=== PATIENT | male | born 1960 | race Caucasian/White ===

== ENCOUNTER 2017-09-15 18:14 | Inpatient (IN) ==
--- NOTE | 2017-09-15 18:41 | Emergency Department Note ---
Fall HPI - General Chief Complaint: Fall Stated Complaint: Falls, swollen lower legs Time Seen by Provider: 09/15/17 18:34 Source: patient Mode of arrival: wheelchair - History of Present Illness HPI Narrative: This patient has a history of liver cirrhosis and has been falling recently. He complains of generalized weakness but not much shortness of breath. He does have ascites but has never had paracentesis. No abdominal pain. Does not complain of any injury from falling. - Related Data Home Medications Medication Instructions Recorded Confirmed Furosemide [Lasix] 0 mg PO DAILY 09/15/17 09/15/17 Allergies Allergy/AdvReac Type Severity Reaction Status Date / Time Penicillins [PENICILLINS] Allergy Severe ANGIOEDEMA Verified 09/15/17 18:23 Review of Systems Constitutional: Denies: fever, chills Eyes: Denies: eye pain ENT ED: Denies: ear pain Cardiovascular: Denies: chest pain Respiratory: Denies: cough, shortness of breath Gastrointestinal: Denies: abdominal pain, nausea Genitourinary: Denies: dysuria Musculoskeletal: Denies: back pain Integumentary: Denies: rash Neurological: Denies: headache Fall PMH - Past Medical History Medical history: Reports: liver disease (Due to alcohol) - Social History smoking status: Smokeless tobacco Alcohol use: Reports: Heavy, Recent Physical Exam Limitations: no limitations General appearance: alert Head: atraumatic, normocephalic Eye: Present: scleral icterus ENT: normal exam Neck: Present: normal inspection Chest: Present: normal inspection Respiratory: Present: normal lung sounds bilaterally Cardiovascular: Present: regular rate, normal rhythm, normal heart sounds Abdominal: Present: soft, distention. Absent: tenderness, guarding, rebound, rigidity Extremities: Present: pedal edema, pretibial edema Neurological: Present: alert Psychiatric: Present: normal affect, normal mood Skin: Present: warm, dry, other (Patient is jaundiced and has spider angiomata on his chest) Course Vital Signs Pulse Rate 92 H 09/15/17 18:15 Respiratory Rate 32 H 09/15/17 18:15 Blood Pressure 123/72 09/15/17 18:15 Pulse Oximetry (%) 99 09/15/17 18:15 Temperature 98.3 F 09/15/17 19:25 Pulse Rate 84 09/15/17 19:16 Respiratory Rate 14 09/15/17 19:16 Blood Pressure 102/63 09/15/17 19:16 Pulse Oximetry (%) 96 09/15/17 19:16 Fall - MDM Narrative Medical decision making narrative: 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 Ammonia is very high and we started lactulose. He may have left lower lobe pneumonia and we started Levaquin. Also has very high lactic acid but I do not see obvious signs of infection to explain it. According the family he has been sleeping most of the time recently so he may be very dehydrated. Alcohol level was only 0.04 so he has not been drinking much recently. He will be admitted to the ICU by Dr. Eugene. - Lab Data Lab results reviewed: Yes I reviewed the patient's lab results. Result diagrams: 09/15/17 18:38 09/15/17 18:38 Lab Results 09/15/17 09/15/17 09/15/17 Range/Units 18:38 18:38 18:38 WBC 7.9 (4.5-11.0) K/mcL RBC 2.73 L (4.50-5.90) M/mcL Hgb 10.8 L (13.5-16.5) g/dL Hct 31.1 L (41.0-55.0) % MCV 113.9 H (80.0-100.0) fL MCH 39.5 H (26.0-34.0) pg MCHC 34.6 (31.0-36.0) g/dL RDW 16.4 H (11.5-14.5) % Plt Count 129 L (140-440) K/mcL MPV 7.9 (7.4-10.4) fL Gran % 54.4 (38.0-78.0) % Lymph % (Auto) 22.5 (15.5-49.0) % [place] % (Auto) 18.2 H (1.0-12.0) % Eos % (Auto) 4.7 (0.0-7.0) % Baso % (Auto) 0.2 (0.0-2.0) % Gran # 4.3 (1.8-8.0) K/mcL Lymph # (Auto) 1.8 (1.5-4.8) K/mcL [place] # (Auto) 1.4 H (0.1-0.9) K/mcL Eos # (Auto) 0.4 (0.0-0.7) K/mcL Baso # (Auto) 0 (0.0-0.3) K/mcL PT 23.0 H (11.9-14.5) sec INR 2.0 H (0.9-1.1) VBG Lactic Acid (0.5-2.2) mmol/L Sodium 136 (133-145) mmol/L Potassium 2.6 L* (3.3-5.1) mmol/L Chloride 90 L (96-108) mmol/L Carbon Dioxide 21 L (22-30) mmol/L Anion Gap 25.0 H (8-16) BUN 8 (6-20) mg/dl Creatinine 1.0 (0.7-1.2) mg/dl GFR Calculation 83 Glucose 104 (70-105) mg/dL Calcium 8.0 L (8.6-10.4) mg/dl Total Bilirubin 9.6 H (0.0-1.0) mg/dL AST 67 H (0-37) U/l ALT 21 (0-40) U/l Alkaline Phosphatase 115 (39-117) U/L Ammonia (16-60) umol/L Total Protein 8.1 (5.9-8.4) gm/dL Albumin 3.0 L (3.2-5.2) gm/dL Globulin 5.1 H (2.2-3.7) gm/dL Albumin/Globulin Ratio 0.6 L (1.0-2.3) Ethyl Alcohol (<0.010) gm/dl 09/15/17 09/15/17 09/15/17 Range/Units 18:38 18:38 18:38 WBC (4.5-11.0) K/mcL RBC (4.50-5.90) M/mcL Hgb (13.5-16.5) g/dL Hct (41.0-55.0) % MCV (80.0-100.0) fL MCH (26.0-34.0) pg MCHC (31.0-36.0) g/dL RDW (11.5-14.5) % Plt Count (140-440) K/mcL MPV (7.4-10.4) fL Gran % (38.0-78.0) % Lymph % (Auto) (15.5-49.0) % [place] % (Auto) (1.0-12.0) % Eos % (Auto) (0.0-7.0) % Baso % (Auto) (0.0-2.0) % Gran # (1.8-8.0) K/mcL Lymph # (Auto) (1.5-4.8) K/mcL [place] # (Auto) (0.1-0.9) K/mcL Eos # (Auto) (0.0-0.7) K/mcL Baso # (Auto) (0.0-0.3) K/mcL PT (11.9-14.5) sec INR (0.9-1.1) VBG Lactic Acid 9.8 H* (0.5-2.2) mmol/L Sodium (133-145) mmol/L Potassium (3.3-5.1) mmol/L Chloride (96-108) mmol/L Carbon Dioxide (22-30) mmol/L Anion Gap (8-16) BUN (6-20) mg/dl Creatinine (0.7-1.2) mg/dl GFR Calculation Glucose (70-105) mg/dL Calcium (8.6-10.4) mg/dl Total Bilirubin (0.0-1.0) mg/dL AST (0-37) U/l ALT (0-40) U/l Alkaline Phosphatase (39-117) U/L Ammonia 232 H (16-60) umol/L Total Protein (5.9-8.4) gm/dL Albumin (3.2-5.2) gm/dL Globulin (2.2-3.7) gm/dL Albumin/Globulin Ratio (1.0-2.3) Ethyl Alcohol 0.046 H (<0.010) gm/dl - Radiology Data Radiology results reviewed: Yes I reviewed the patient's radiology results. Disposition Pt seen by [employer]/PA only: No Clinical Impression: Cirrhosis of liver Disposition: Xfer As Inpt ([facility]) Condition: Fair Referrals: Erwin Moore MD [Primary Care Provider] - Time of Disposition: 20:09
--- NOTE | 2017-09-15 19:15 | XRay Report ---
HISTORY: Reason for Exam:ascites fell and swollen lower legs FINDINGS: There is moderate consolidation posteriorly medially in the left lower lobe. This is a new finding since 05/03/14. There may be a small subpulmonic pleural effusion on the left. The mid and upper left thorax are clear. The right lung is clear and well expanded. The heart is mildly enlarged and has increased in size since 2013. There is no pulmonary vascular congestion. Mild compression fractures seen involving the superior endplate of T12. This is old. IMPRESSION: Pneumonia or atelectasis in the left lower lobe. Mild cardiomegaly Interpreted and Authenticated by: Esteban Soto 09/15/17
[2017-09-15] MEDS ORDERED: LEVOFLOXACIN 750 MG/150 ML BAG IV ONE (19:23)
[2017-09-15] MEDS ORDERED: LACTULOSE 20 GM/30 ML ORAL.SOL PO ONE (19:25)
[2017-09-15 19:40] LABS: ALT/SGPT 21 U/l (0-40); Albumin/Globulin Ratio 0.6 (1.0-2.3); Alkaline Phosphatase 115 U/L (39-117); Blood Urea Nitrogen 8 mg/dl (6-20)
[2017-09-15] MEDS ORDERED: LIDOCAINE 2% URO-JET 5 ML JEL.PF.APP UR ONE (19:48)
[2017-09-15 19:50] LABS: Basophils # (Auto) 0 K/mcL (0.0-0.3); Basophils % (Auto) 0.2 % (0.0-2.0); Eosinophils # (Auto) 0.4 K/mcL (0.0-0.7); Eosinophils % (Auto) 4.7 % (0.0-7.0); Granulocytes % (Auto) 54.4 % (38.0-78.0); Lymphocytes # (Auto) 1.8 K/mcL (1.5-4.8); Lymphocytes % (Auto) 22.5 % (15.5-49.0); Mean Cell Volume 113.9 fL (80.0-100.0); Mean Corpuscular HGB Conc 34.6 g/dL (31.0-36.0); Mean Corpuscular Hemoglobin 39.5 pg (26.0-34.0); Monocytes # (Auto) 1.4 K/mcL (0.1-0.9); Monocytes % (Auto) 18.2 % (1.0-12.0); Platelet Count 129 K/mcL (140-440); RBC 2.73 M/mcL (4.50-5.90); Red Cell Distribution Width 16.4 % (11.5-14.5)
[2017-09-15] MEDS ORDERED: LIDOCAINE JEL 2% 1 TUBE 30GM TOPICAL ONE (19:58)
--- NOTE | 2017-09-15 20:48 | Internal Med History&Physical ---
Medical - H&P: HPI Patient information: Note initiated : 09/15/17 at 8:42 pm Patient: Esteban Almeida 56 y/o M admitted on for Falls, swollen lower legs. Chief Complaint: [] History of present illness: Mr. Almeida is a 56 year old man who was recently diagnosed with liver cirrhosis, is brought in by his family with complaint of increased falls, lower extremity edema, jaundice, shortness of breath. Unfortunately, the family had already gone home by the time the patient arrived on the floor. Patient appears to be an unreliable historian. He reports that his legs have been swelling for the last 3 weeks, and that he fell down today and could not get up because his legs are so heavy. He really cannot recall any other symptoms. He denies fever chills, headaches or dizziness, new eye or ear symptoms, sore throat or cough, chest pain or palpitations, shortness of breath or wheezing, abdominal pain, nausea or vomiting, diarrhea. He does report mild constipation. He does report some difficulty urinating. Records obtained from [facility] show that he was admitted there in May 2017 with jaundice secondary to alcoholic hepatitis, liver cirrhosis secondary to alcohol, cerebellar ataxia, hypokalemia, L3 compression fracture, chronic anemia and thrombocytopenia, alcohol abuse. I spoke with Dr. Archuleta this evening, as he had seen the patient at [facility]. He had hoped the patient had quit drinking alcohol, but apparently the patient did not once he got out of rehab. ER evaluation shows weighted ammonia level, elevated lactic acid level, hypokalemia, markedly elevated bilirubin of 9.6, elevated pro time, and chest x- ray suggests left lower lobe pneumonia with possible effusion. 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 Patient admits that he still drinks about 4-6 beers per day. He does not use drugs. He currently lives with his father. He has other siblings and family that live here in town. He says one brother of an PR. Use is reported, active drinker Family history: His brother of an PR. He reports his father is alive and well. Medical - H&P: Meds Home Medications Medication Instructions Recorded Confirmed Type Furosemide [Lasix] 0 mg PO DAILY 09/15/17 09/15/17 History Allergies Allergy/AdvReac Type Severity Reaction Status Date / Time Penicillins [PENICILLINS] Allergy Severe ANGIOEDEMA Verified 09/15/17 18:23 Medical - H&P: Exam - Constitutional Vitals: Temp Pulse Resp BP Pulse Ox 98.3 F 95 H 22 125/69 93 09/15/17 19:25 09/15/17 20:32 09/15/17 20:32 09/15/17 20:32 09/15/17 20:32 On exam, he is a slender white man who appears jaundiced. He is quite fidgety in bed, but is otherwise in no acute distress. He seems quite forgetful. Head: Normocephalic, atraumatic, although he does appear to have temporal wasting. Eyes: Pupils round and reactive, EOMI, mild jaundice. Left pupil is not reactive, and he apparently has no vision in that eye. Ears: TMs and canals are clear. Pharynx: Is clear. Teeth are in fair condition. Neck: Supple, without obvious JVD, lymphadenopathy, thyromegaly, bruits. Cardiac exam: Shows regular rate and rhythm with normal S1 and S2 without murmurs rubs or gallops. Lungs: Decreased breath sounds are noted at the left base, otherwise lungs are clear, without rales, rhonchi, wheezes. Abdomen: Is slightly distended, but otherwise soft and nontender. There are no obvious masses. Does have telangiectasias noted over the abdomen and on his chest. All sounds are active. Extremities: Show about 4+ edema all the way up to the level of his belly. There is no obvious cyanosis or clubbing. Neurologic exam: Patient is awake and alert, but seems quite forgetful and lacks insight into his illness. Mood is calm. However he does fidget quite a bit in bed, which he blames on sliding down in bed too much. Cerebellar exam does not show any obvious asterixis. Motor exam is grossly nonfocal. Medical - H&P: Reslt - Labs CBC & Chem 7: 09/15/17 18:38 09/15/17 18:38 Labs: Short CBC 09/15/17 Range/Units 18:38 WBC 7.9 (4.5-11.0) K/mcL Hgb 10.8 L (13.5-16.5) g/dL Hct 31.1 L (41.0-55.0) % Plt Count 129 L (140-440) K/mcL BMP 09/15/17 18:38 Sodium 136 Potassium 2.6 L* Chloride 90 L Carbon Dioxide 21 L BUN 8 Creatinine 1.0 Glucose 104 Calcium 8.0 L Liver Function 09/15/17 Range/Units 18:38 Total Bilirubin 9.6 H (0.0-1.0) mg/dL AST 67 H (0-37) U/l ALT 21 (0-40) U/l Alkaline Phosphatase 115 (39-117) U/L Albumin 3.0 L (3.2-5.2) gm/dL September 15: Pro time is 23 with INR of 2.0 next Lactic acid is elevated at 9.8 Urinalysis: Alcohol level is elevated at 0.046 Chest x-ray: Moderate left lower lobe consolidation. Possible left-sided pleural effusion. Mild compression fractures of the endplate of T12, old. Mild cardiomegaly. Head CT done at [facility] in May 2017 showed no acute process. Abdominal and pelvic CT showed cirrhosis of the liver with portal venous hypertension, pancreatitis, distended gallbladder, L1 and L3 superior endplate compression changes and L3 compression fracture, evidence of right renal atrophy Ultrasound showed distended gallbladder with sludge MRCP showed significantly distended gallbladder with some sludge of the neck but no biliary duct dilation. Labs on admission in May showed platelet count of 88,000, sodium 132, potassium 2.4, total bilirubin of 10 AST 91, alcohol blood level of less than 0.01. Medical - H&P: A/P (1) Left lower lobe pneumonia Current visit: Yes Status: Acute (2) Lactic acidosis Current visit: Yes Status: Acute (3) Cirrhosis of liver Current visit: Yes Status: Chronic (4) Hypokalemia Current visit: No Status: Acute - Narrative A/P Narrative: #1. Infectious disease. Patient presents with apparent left lower lobe pneumonia, lactic acidosis, possible SBP, possible early sepsis. -Gentle IV fluids, regarding overall volume status. -Monitor on telemetry. -Oxygen, bronchodilators, pulmonary toilet. -Blood, urine, sputum cultures. -Order paracentesis for Gram stain, culture, other studies. -May treat the patient with Rocephin to cover both his pneumonia and possible SBP, although GI recommends cefotaxime and this is I am not sure this is on our formulary) 2. GI. Patient presents with history of cirrhosis, relatively recent. Clinically has severe liver dysfunction. Sent for recent GI records [facility]. -Hepatitis, with a MADDRY discriminant function of 60. This was reviewed with Dr. Archuleta of , and he suggests we treat him with prednisolone 40 mg daily for 30 days, and then do a 16 day taper by 10 mg per day every 4 days. -Correct his relatively severe hypokalemia, and then resume Lasix and I would think Aldactone or amiloride. Looks like his discharge medications from [facility] included prednisone, Lasix, potassium, oxycodone, atenolol, amlodipine , allopurinol -Resume diuretics at some point. We will need to correct his potassium first. -Elevated ammonia. Titrate lactulose to 3 bowel movements per day. 3. History of alcohol abuse -[facility] protocol -#4. CODE STATUS: Full code. Patient believes his father would act as his POA. 5. DVT prophylaxis: Patient is auto anticoagulated. 6. Neurologic. Failure to thrive. History of cerebellar degeneration. Patient apparently is no longer ambulatory. -PT and OT evaluations. It appears patient is struggling at home, and may need placement. #7. Poor nutritional status. Dietary consult. 8. Cardiac. 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 Consider echocardiogram. Approximately 75 minutes was spent this evening, reviewing the patient's case with the ER MD, reviewing his test results, interviewing and examining the patient, and then spending approximately 20 minutes on the phone with Dr. Archuleta of , reviewing the patient's case and plan of care.
[2017-09-15 20:50] LABS: Appearance,Urine CLEAR; Bacteria,Urine FEW /hpf (0); Color,Urine AMBER; Glucose,Urine (UA) NEGATIVE (NEG); Ictotest,Urine POS (NEG); Leukocyte Esterase,Urine NEG /uL (NEG); Mucus,Urine MANY /hpf (0); Nitrate,Urine NEG (NEG); Protein,Urine NEG (NEG); Specific Gravity,Urine 1.015 (1.000-1.035); Urine Blood NEG mg/dL (<0.03); Urine Hyaline Cast 127 /lpf (0-2); Urine RBC 0 /hpf (0-1); Urine Squamous Epithelial Cell < 1 /hpf (0-4); Urine Transitional Epi Cells < 1 /hpf (0-2); Urine WBC 1 /hpf (0-4)
[2017-09-15] MEDS ORDERED: DOCUSATE SODIUM 100 MG CAPSULE PO PRN (21:20)
[2017-09-15] MEDS ORDERED: NALOXONE HCL 0.4 MG/ML VIAL IV PRN (21:20)
[2017-09-15] MEDS ORDERED: ACETAMINOPHEN 325 MG TABLET PO PRN (21:20)
[2017-09-15] MEDS ORDERED: ONDANSETRON 4 MG/2 ML VIAL IV PRN (21:20)
[2017-09-15] MEDS ORDERED: CIPROFLOXACIN 400 MG/200 ML BAG IV SCH (21:20)
[2017-09-15] MEDS ORDERED: LACTULOSE 20 GM/30 ML ORAL.SOL PO SCH (21:20)
[2017-09-15] MEDS: POTASSIUM CHLORIDE 40 MEQ in DEXTROSE 5%-1/2NS 1,000 ML IV SCH (21:53)
[2017-09-15] MEDS ORDERED: cefTRIAXone 2 GM VIAL IV SCH (22:30)
[2017-09-16] MEDS ORDERED: cefTRIAXone 2 GM VIAL ONE (00:18)
[2017-09-16] MEDS ORDERED: predniSONE 20 MG TABLET ONE (00:18)
[2017-09-16] MEDS: prednisoLONE 15 MG/5 ML ORAL SOL PO SCH ×2 (00:36→09:27)
[2017-09-16] MEDS: 0.9 % SODIUM CHLORIDE 10 ML SYRINGE IV SCH ×7 (00:36→22:15)
[2017-09-16] MEDS ORDERED: LORazepam 2 MG/ML VIAL ONE (00:41)
[2017-09-16 06:20] LABS: ALT/SGPT 16 U/l (0-40); Albumin 2.4 gm/dL (3.2-5.2); Albumin/Globulin Ratio 0.6 (1.0-2.3); Alkaline Phosphatase 76 U/L (39-117); Bilirubin,Direct 4.2 mg/dL (0.0-0.3); Blood Urea Nitrogen 7 mg/dl (6-20); Gamma Glutamyl Transpeptidase 55 U/L (8-61); Uric Acid 2.6 mg/dL (2.5-8.0)
[2017-09-16 06:50] LABS: Basophils # (Auto) 0 K/mcL (0.0-0.3); Basophils % (Auto) 0.3 % (0.0-2.0); Eosinophils # (Auto) 0.2 K/mcL (0.0-0.7); Granulocytes % (Auto) 52.5 % (38.0-78.0); Lymphocytes # (Auto) 1.1 K/mcL (1.5-4.8); Lymphocytes % (Auto) 22.5 % (15.5-49.0); Mean Cell Volume 112.4 fL (80.0-100.0); Mean Corpuscular HGB Conc 34.2 g/dL (31.0-36.0); Mean Corpuscular Hemoglobin 38.5 pg (26.0-34.0); Monocytes # (Auto) 1.1 K/mcL (0.1-0.9); Monocytes % (Auto) 20.7 % (1.0-12.0); Platelet Count 84 K/mcL (140-440); RBC 2.28 M/mcL (4.50-5.90); Red Cell Distribution Width 17.1 % (11.5-14.5)
[2017-09-16] MEDS ORDERED: POTASSIUM CHLORIDE 80 MEQ in DEXTROSE 5% IN WATER 1,000 ML IV ONE (08:00)
[2017-09-16] MEDS ORDERED: ATENOLOL 50 MG TABLET PO SCH (09:00)
[2017-09-16] MEDS ORDERED: MAGNESIUM SULFATE 32.48 MEQ in DEXTROSE 5% IN WATER 100 ML IV ONE (09:00)
[2017-09-16] MEDS: ALBUTEROL SULFATE 2.5 MG/3 ML NEBULIZER NEB SCH ×3 (09:13→21:18)
[2017-09-16] MEDS: LACTULOSE 20 GM/30 ML ORAL.SOL PO SCH ×4 (09:25→21:00)
[2017-09-16] MEDS: POTASSIUM CHLORIDE 20 MEQ TABLET PO SCH ×2 (09:26→17:00)
[2017-09-16] MEDS: FOLIC ACID 1 MG TABLET PO SCH (09:26)
[2017-09-16] MEDS: MULTIVIT,THER IRON,CA,FA & MIN 1 TABLET PO SCH (09:26)
[2017-09-16] MEDS: THIAMINE 100 MG TABLET PO SCH (09:26)
[2017-09-16] MEDS: ATENOLOL 50 MG TABLET PO SCH ×2 (09:27→21:01)
[2017-09-16] MEDS: POTASSIUM CHLORIDE 40 MEQ in DEXTROSE 5%-1/2NS 1,000 ML IV SCH (09:30)
[2017-09-16] MEDS ORDERED: ALBUMIN HUMAN 50 GM/200 ML BAG IV ONE (11:45)
--- NOTE | 2017-09-16 12:05 | Internal Med Progress Note ---
Medical - PN: Subj Patient information: Note initiated : 09/16/17 at 12:04 pm Service Date, if different from initiated Date: [] Patient: Esteban Almeida 56 y/o M admitted on 09/15/17 for Falls, Swollen Lower Legs/PNA, Cirrhosis of Liver. Chief Complaint: [] Interval history: September 15, 2017: History of present illness: Mr. Almeida is a 56 year old man who was recently diagnosed with liver cirrhosis, is brought in by his family with complaint of increased falls, lower extremity edema, jaundice, shortness of breath. Unfortunately, the family had already gone home by the time the patient arrived on the floor. Patient appears to be an unreliable historian. He reports that his legs have been swelling for the last 3 weeks, and that he fell down today and could not get up because his legs are so heavy. He really cannot recall any other symptoms. He denies fever chills, headaches or dizziness, new eye or ear symptoms, sore throat or cough, chest pain or palpitations, shortness of breath or wheezing, abdominal pain, nausea or vomiting, diarrhea. He does report mild constipation. He does report some difficulty urinating. Records obtained from [facility] show that he was admitted there in May 2017 with jaundice secondary to alcoholic hepatitis, liver cirrhosis secondary to alcohol, cerebellar ataxia, hypokalemia, L3 compression fracture, chronic anemia and thrombocytopenia, alcohol abuse. I spoke with Dr. Archuleta this evening, as he had seen the patient at [facility]. He had hoped the patient had quit drinking alcohol, but apparently the patient did not once he got out of rehab. ER evaluation shows weighted ammonia level, elevated lactic acid level, hypokalemia, markedly elevated bilirubin of 9.6, elevated pro time, and chest x- ray suggests left lower lobe pneumonia with possible effusion. September 16: -Today, the patient continues to deny that he is having problems. He is wondering when he can go home. Last evening, he was unable to empty his bladder , and had a greater than 700 mL postvoid residual, so Graves catheter was placed. He admits he has been having trouble emptying his bladder at home. -He was seen by physical therapy today. He is still too weak to really assist much with transfers, so they are working on that. -He denies significant pain, fever or chills, chest pain or shortness of breath or cough, abdominal pain, nausea or vomiting or diarrhea. His history appears quite unreliable. -Radiology was able to remove approximately 3 L of fluid via paracentesis today. -His father was in the room when I stop by this evening, and I explained that he was having further decompensation of his liver function, and due to ongoing alcohol use. The father, who lives with the patient, says he did not realize the patient was still drinking. Nursing staff tells me that the patient's parents feel that because of worsening weakness they are concerned that they will not be able to handle him at home any longer. - Constitutional Vitals: Vital Signs Temp Pulse Resp BP Pulse Ox 99.8 F H 90 18 121/63 96 09/16/17 10:30 09/16/17 10:30 09/16/17 10:30 09/16/17 10:30 09/16/17 10:30 Period Temp Pulse Resp BP Sys/López Pulse Ox Last 24 Hr 97.9 F-100.3 F 84-95 9-32 92-125/55-87 93-100 Intake and Output 09/15/17 09/16/17 09/16/17 21:59 05:59 13:59 Intake Total 150 / 150 240 / 240 1260 / 1260 Output Total 150 / 150 1100 / 1100 Balance 150 / 150 90 / 90 160 / 160 Weight 250 lb 1.6 oz Intake & Output: Intake & Output 09/15/17 09/16/17 09/16/17 21:59 05:59 13:59 Intake Total 150 / 150 240 / 240 1260 / 1260 Output Total 150 / 150 1100 / 1100 Balance 150 / 150 90 / 90 160 / 160 Weight 250 lb 1.6 oz Intake: IV 150 / 150 1020 / 1020 Potassium Chloride 40 Meq In 1020 / 1020 Dextrose 5%-1/2Ns IV Solution 1 ,000 ml @ 100 mls/hr IV . [id number] [facility] Rx#:[id number] Oral 240 / 240 240 / 240 Output: Urine Catheter Amount 500 / 500 Void Amount 150 / 150 600 / 600 Uretheral (Graves) 600 / 600 On exam, he is in no acute distress. He is sitting straight up in bed. He is awake and alert, but seems quite forgetful. Neck is supple without obvious JVD. Cardiac exam shows regular rate and rhythm. Lungs have decreased breath sounds at the bases, with a few crackles at the left base, but otherwise are without rhonchi or wheezes. Abdomen is soft, with active bowel sounds. Extremities continue to show about 4+ pitting edema up to the abdomen. Medical - PN: Obj Da - Labs CBC & Chem 7: 09/16/17 04:22 09/16/17 04:22 Labs: Abnormal Lab Results 09/16/17 09/16/17 09/16/17 04:22 04:22 04:22 RBC 2.28 L Hgb 8.8 L Hct 25.6 L MCV 112.4 H MCH 38.5 H RDW 17.1 H Plt Count 84 L [place] % (Auto) 20.7 H Lymph # (Auto) 1.1 L [place] # (Auto) 1.1 H PT INR VBG Lactic Acid 3.4 H Potassium Chloride Carbon Dioxide Anion Gap Glucose Calcium Magnesium Total Bilirubin Direct Bilirubin AST Ammonia 105 H Lactate Dehydrogenase Albumin Globulin Albumin/Globulin Ratio Urine Bilirubin Urine Ictotest Urine Urobilinogen Urine Bacteria Hyaline Casts Urine Mucus Ethyl Alcohol 09/16/17 09/15/17 09/15/17 04:22 20:10 18:38 RBC Hgb Hct MCV MCH RDW Plt Count [place] % (Auto) Lymph # (Auto) [place] # (Auto) PT INR VBG Lactic Acid Potassium 2.4 L* Chloride 95 L Carbon Dioxide Anion Gap Glucose 117 H Calcium 7.2 L Magnesium 1.0 L Total Bilirubin 7.8 H Direct Bilirubin 4.2 H AST 51 H Ammonia Lactate Dehydrogenase 269 H Albumin 2.4 L Globulin 3.9 H Albumin/Globulin Ratio 0.6 L Urine Bilirubin 4.0 A Urine Ictotest Pos A Urine Urobilinogen 4.0 A Urine Bacteria Few A Hyaline Casts 127 H Urine Mucus Many A Ethyl Alcohol 0.046 H 09/15/17 09/15/17 09/15/17 18:38 18:38 18:38 RBC Hgb Hct MCV MCH RDW Plt Count [place] % (Auto) Lymph # (Auto) [place] # (Auto) PT INR VBG Lactic Acid 9.8 H* Potassium 2.6 L* Chloride 90 L Carbon Dioxide 21 L Anion Gap 25.0 H Glucose Calcium 8.0 L Magnesium Total Bilirubin 9.6 H Direct Bilirubin AST 67 H Ammonia 232 H Lactate Dehydrogenase Albumin 3.0 L Globulin 5.1 H Albumin/Globulin Ratio 0.6 L Urine Bilirubin Urine Ictotest Urine Urobilinogen Urine Bacteria Hyaline Casts Urine Mucus Ethyl Alcohol 09/15/17 09/15/17 18:38 18:38 RBC 2.73 L Hgb 10.8 L Hct 31.1 L MCV 113.9 H MCH 39.5 H RDW 16.4 H Plt Count 129 L [place] % (Auto) 18.2 H Lymph # (Auto) [place] # (Auto) 1.4 H PT 23.0 H INR 2.0 H VBG Lactic Acid Potassium Chloride Carbon Dioxide Anion Gap Glucose Calcium Magnesium Total Bilirubin Direct Bilirubin AST Ammonia Lactate Dehydrogenase Albumin Globulin Albumin/Globulin Ratio Urine Bilirubin Urine Ictotest Urine Urobilinogen Urine Bacteria Hyaline Casts Urine Mucus Ethyl Alcohol September 16: Peritoneal fluid: PH 7.63. CBC shows 2% neutrophils, 44 lymphocytes, 46 mesothelial cells. Protein is 1.7. Albumin 0.7. September 15: Pro time is 23 with INR of 2.0 next Lactic acid is elevated at 9.8 Urinalysis: Alcohol level is elevated at 0.046 Chest x-ray: Moderate left lower lobe consolidation. Possible left-sided pleural effusion. Mild compression fractures of the endplate of T12, old. Mild cardiomegaly. Head CT done at [facility] in May 2017 showed no acute process. Abdominal and pelvic CT showed cirrhosis of the liver with portal venous hypertension, pancreatitis, distended gallbladder, L1 and L3 superior endplate compression changes and L3 compression fracture, evidence of right renal atrophy Ultrasound showed distended gallbladder with sludge MRCP showed significantly distended gallbladder with some sludge of the neck but no biliary duct dilation. Labs on admission in May showed platelet count of 88,000, sodium 132, potassium 2.4, total bilirubin of 10 AST 91, alcohol blood level of less than 0.01. Meds: Medications Acetaminophen (Tylenol) 650 mg PO Q6HP PRN PRN Reason: PAIN/FEVER > 101 Albuterol Sulfate (Ventolin) 2.5 mg NEB TID ZAC Last Admin: 09/16/17 09:13 Dose: 2.5 mg Atenolol (Tenormin) 25 mg PO HS ZAC Atenolol (Tenormin) 50 mg PO QAM [facility] Last Admin: 09/16/17 09:27 Dose: 50 mg Ceftriaxone Sodium (Rocephin) 2 gm IV Q24H [facility] Last Admin: 09/16/17 00:37 Dose: Not Given Docusate Sodium (Colace) 100 mg PO BID PRN PRN Reason: Constipation Folic Acid (Folic Acid) 1 mg PO DAILY [facility] Last Admin: 09/16/17 09:26 Dose: 1 mg Potassium Chloride 40 meq/ (Dextrose/Sodium Chloride) 1,020 mls @ 100 mls/hr IV .[id number] [facility] Last Infusion: 09/16/17 08:32 Dose: Infused Potassium Chloride 80 meq/ (Dextrose) 1,040 mls @ 130 mls/hr IV ONCE ONE Stop: 09/16/17 15:59 Last Admin: 09/16/17 08:40 Dose: 130 mls/hr Albumin Human (Buminate) 50 gm in 200 mls @ 100 mls/hr IV ONCE ONE Stop: 09/16/17 13:44 Iron Carb/Multivit/Bertrand/Folic Acid (Multivitamin W/Minerals) 1 tab PO DAILY [facility] Last Admin: 09/16/17 09:26 Dose: 1 tab Lactulose (Cephulac) 20 gm PO QID [facility] Last Admin: 09/16/17 09:25 Dose: 20 gm Lorazepam (Ativan) 0 mg IV Q4HP PRN; Protocol PRN Reason: Alcohol Withdrawal Naloxone HCl (Narcan) 0.1 mg IV Q2MIN PRN PRN Reason: Opiate Reversal Ondansetron HCl (Zofran) 4 mg IV Q6HP PRN PRN Reason: Nausea And Vomiting Oxycodone HCl (Oxycodone Hcl) 5 mg PO Q4HP PRN PRN Reason: Pain Potassium Chloride (Kdur) 40 meq PO BIDCC [facility] Last Admin: 09/16/17 09:26 Dose: 40 meq Prednisone (Prednisolone) 40 mg PO DAILY [facility] Last Admin: 09/16/17 09:27 Dose: 40 mg Sodium Chloride (Saline Flush) 10 ml IV Q8 [facility] Last Admin: 09/16/17 08:43 Dose: 10 ml Sodium Chloride (Saline Flush) 10 ml IV Q8 [facility] Last Admin: 09/16/17 08:43 Dose: 10 ml Thiamine HCl (Vitamin B1) 100 mg PO QDAY [facility] Last Admin: 09/16/17 09:26 Dose: 100 mg Medical - PN: A/P - Time Spent With Patient Total time spent is greater than 50% in coordination of care (as documented) at patient's floor/unit and/or counseling patient: Greater than 35 minutes (1) Left lower lobe pneumonia Status: Acute Current Visit: Yes (2) Lactic acidosis Status: Acute Current Visit: Yes (3) Cirrhosis of liver Status: Chronic Current Visit: Yes (4) Hypokalemia Status: Acute Current Visit: No - Narrative A/P Narrative: #1. Infectious disease. Patient presents with apparent left lower lobe pneumonia, lactic acidosis, possible SBP, possible early sepsis. -Peritoneal fluid studies do not appear consistent with SBP at this time. -Patient was given gentle IV fluid hydration regarding lactic acidosis, and lactic acid is nearly back to normal today, with improvement in serum bicarb and anion gap. We will discontinue IV fluids at this time, given his tendency towards edema. -Chest x-ray was consistent with possible early pneumonia, but patient continues to deny pulmonary symptoms. Blood urine and sputum cultures are pending. Ascitic fluid cultures are pending as well area The patient continues on IV Rocephin, to cover both his lungs and his belly. ( although GI recommends cefotaxime and this is I am not sure this is on our formulary) 2. GI. Patient presents with history of cirrhosis, relatively recent. Clinically has severe liver dysfunction. -Hepatitis, with a MADDRY discriminant function of 60. This was reviewed with Dr. Archuleta of GI, and he suggests we treat him with prednisolone 40 mg daily for 30 days, and then do a 16 day taper by 10 mg per day every 4 days. -Serum to albumin gradient is suggestive of portal hypertension. -Correct his relatively severe hypokalemia, and then resume Lasix and I would think Aldactone or amiloride. Looks like his discharge medications from [facility] included prednisone, Lasix, potassium, oxycodone, atenolol, amlodipine , allopurinol -Elevated ammonia is somewhat improved.. Titrate lactulose to 3 bowel movements per day. 3. History of alcohol abuse -[facility] protocol -#4. CODE STATUS: Full code. Patient believes his father would act as his POA. 5. DVT prophylaxis: Patient is auto anticoagulated. 6. Neurologic. Failure to thrive. History of cerebellar degeneration. Patient apparently is no longer ambulatory. -PT and OT evaluations. It appears patient is struggling at home, and may need placement. #7. Poor nutritional status. Dietary consult. 8. Cardiac. 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 Consider echocardiogram. Next 9. . Is experiencing urinary retention. Continue Graves catheter for now. Add Flomax. Medical - PN: Qual - VTE Deep Vein Thrombosis/Pulmonary Embolism Present on Admission: No
[2017-09-16 12:37] LABS: pH,Body Fluid 7.63
[2017-09-16 12:54] LABS: Appearance, Body Fluid CLEAR; Color, Body Fluid YELLOW; Nucleated Cells,Body Fld 360 /cumm; RBC, Body Fluid < 50000 /cumm
[2017-09-16 12:59] LABS: Nucleated Cel,Peritoneal Fluid 360 /cumm; RBC,Peritoneal Fluid < 50000 /cumm
[2017-09-16 13:00] LABS: Glucose,Peritoneal Fluid 151 mg/dL; LDH,Peritoneal Fluid 72 U/L; Total Protein,Peritoneal Fluid 1.7 gm/dL
[2017-09-16 13:43] LABS: Neutrophils,Peritoneal Fluid 2 %
[2017-09-16] MEDS: cefTRIAXone 2 GM VIAL IV SCH (16:31)
[2017-09-16] MEDS ORDERED: POTASSIUM CHLORIDE 40 MEQ in DEXTROSE 5%-1/2NS 1,000 ML IV SCH (19:15)
[2017-09-16] MEDS: LORazepam 2 MG/ML VIAL IV PRN ×3 (19:38→23:17)
--- NOTE | 2017-09-16 20:32 | Consultation ---
DATE OF CONSULTATION: 09/16/2017 Gastroenterology Consultation Dictated and consult done on 09/16/2017. CHIEF COMPLAINT: Alcoholic liver disease. HISTORY OF PRESENT ILLNESS: The patient is a 56-year-old white male with whom I became familiar earlier this summer when he had presented to [facility] with acute alcoholic hepatitis with probable underlying cirrhosis. He was treated with a course of prednisolone and was actually admitted to a half-way for a few weeks and finally discharged home in early June 2016. I last saw him in the office around early June and at that time he had stopped drinking and was anticipating going back home where he lives with his father. Unfortunately, he has apparently resumed alcohol drinking. In fact, he admits drinking 4 to 6 beers per day and occasionally some whiskey on top of that. He is brought in to the hospital last night with marked increase of edema of his lower extremities. He has been falling recently at home. There is a history of cerebellar ataxia. He is jaundiced. X-ray on admission suggests a pneumonia at the left lower lobe. He presented with a markedly elevated ammonia level. He was awake, but lethargic. The hospitalist called me on admission last night to discuss his case. I recommended performing paracentesis to check for the presence of spontaneous bacterial peritonitis (SBP). I also advised starting prednisolone again, 40 mg daily, based on his discriminant function of Maddrey score of about 60. A score greater than 32 would dictate the use of prednisolone for the severe alcoholic hepatitis. I see his chest x-ray with left lower lobe pneumonia. He has been started on Rocephin. He did have paracentesis performed earlier today with 2.8 liters removed. It was described as yellow, clear fluid; 360 nucleated cells but only 2 percent neutrophils. The discriminant function, as I said, calculated to be about 60. His potassium is severely low and the ammonia level was 232 on admission last night and down to 105 this morning. The patient denies significant abdominal pain. He says that he has been eating quite well up until a couple of days ago. His mother is in the room and she says that he has not actually been eating well at all for quite some time. He is living at home with his father, looking after him and taking care of him, as best he can. Apparently his father is aware that he has been drinking alcohol in the form of beer. The patient is drinking other liquor from an unknown source. When he presented last night, his ethanol level was 46 mg/dL. Potassium level was 2.6 last night and actually 2.4 this morning. PAST MEDICAL HISTORY: Includes cerebellar degeneration and ataxia, cirrhosis induced by alcohol. Chronic anemia and thrombocytopenia due to his liver disease and ongoing alcohol drinking. MEDICATIONS AT HOME: Lasix 40 mg daily. Potassium chloride 40 mg daily. Oxycodone 5 mg every 6 hours as needed for back pain. Atenolol 50 mg twice daily. Amlodipine 5 mg daily. Allopurinol 300 mg daily. ALLERGIES: PENICILLIN. SOCIAL HISTORY: He chews one-third of a can of tobacco per day. Drinks up to 6 beers per day, at least that he reports. Some additional hard liquor as well. FAMILY HISTORY: A brother of [place]. PHYSICAL EXAMINATION: VITAL SIGNS: Today blood pressure is 120/72, pulse 72, respirations 16 to 18, and temperature 99.6 degrees. GENERAL: The patient is awake and alert. His voice is thick and slow, but he does recognize me as soon as I walk in the room. HEENT: His sclerae are icteric and the skin is positive for spider angiomas, consistent with chronic liver disease. Airway is patent. LUNGS: Decreased breath sounds bilaterally. CARDIAC: Regular rate and rhythm, without gallop. ABDOMEN: Moderately distended but nontender. I do not palpate hepatosplenomegaly, although he still has ascites, even after the 2.8 liter paracentesis. EXTREMITIES: With 3 to 4+ bipedal edema extending to the level of the knees and even lower thighs. NEUROLOGIC EXAM: He does have asterixis. DIAGNOSTIC DATA: Today the sodium is 136. Total bilirubin down to 7.8 from 9.6 last night. AST is 51, ALT 16, alkaline phosphatase 76. Albumin is 2. The ammonia went from 232 to 105 today. White count is 5100, hemoglobin is 8.8, platelets 84,000. MCV is significantly elevated at 112, consistent with his alcohol drinking. INR was 2 with a PT of 23 seconds last night. BUN is 7 with creatinine 0.8. The peritoneal fluid as noted above. Ethanol level 46 mg/dL on admission last night. Chest x-ray taken last night was read by the radiologist as representing pneumonia or atelectasis at the left lower lobe, along with mild cardiomegaly. ASSESSMENT AND RECOMMENDATIONS: The patient's obvious main problem is his alcohol-induced liver disease. I do suspect that he has alcoholic hepatitis, again superimposed on his underlying cirrhosis. His mortality is significant, as evidenced by the discriminant function of 60. I agree with the prednisolone as mentioned above. Treating the pneumonia is certainly reasonable as a means of trying to further address his encephalopathy. I am glad to see that the paracentesis data does not suggest spontaneous bacterial peritonitis. Hypokalemia can contribute to the encephalopathy and therefore aggressive repletion of potassium will be important. Hypomagnesemia would need to be addressed as well if the potassium is to be corrected. Obviously abstinence from alcohol is essential. I have reiterated this point with the patient once again and with his mother who is in the room tonight. Nutritional support is important as well for supportive treatment of the alcoholic hepatitis. His short-term prognosis will be dictated by his alcoholic hepatitis. His long-term prognosis is unfortunately poor based on his underlying cirrhosis, especially with his ongoing alcohol abuse. His MELD score (model of end-stage liver disease) is 24, which in and by itself would predict a 15 percent, 90-day mortality. I will follow with you in hospital. Thank you for this consultation. JCM:[email or web address] Job ID: [id number] Doc ID: [id number] Fabrice Moore MD
[2017-09-16] MEDS: TAMSULOSIN 0.4 MG CAPSULE PO SCH (21:00)
[2017-09-16] MEDS: oxyCODONE HCL 5 MG TABLET PO PRN (21:01)
[2017-09-16] MEDS: DEXTROSE 5%-1/2NS W/40MEQ KCL 1,000 ML IV SCH (21:03)
[2017-09-16] MEDS ORDERED: FUROSEMIDE 20 MG/2 ML VIAL IV ONE ×2 (21:23→21:44)
[2017-09-16] MEDS ORDERED: FUROSEMIDE 40 MG/4 ML VIAL IV ONE ×2 (23:40→23:51)
[2017-09-17] MEDS ORDERED: FUROSEMIDE 100 MG/10 ML VIAL IV ONE (00:57)
[2017-09-17] MEDS: ALBUTEROL SULFATE 2.5 MG/3 ML NEBULIZER NEB SCH ×4 (00:57→20:48)
[2017-09-17] MEDS ORDERED: FUROSEMIDE 40 MG/4 ML VIAL IV ONE (01:07)
[2017-09-17] MEDS ORDERED: NITROGLYCERIN 1 GM OINT.TOP ONE (01:14)
[2017-09-17 02:21] LABS: Basophils # (Auto) 0 K/mcL (0.0-0.3); Basophils % (Auto) 0 % (0.0-2.0); Eosinophils # (Auto) 0.1 K/mcL (0.0-0.7); Eosinophils % (Auto) 0.6 % (0.0-7.0); Granulocytes % (Auto) 74.5 % (38.0-78.0); Lymphocytes # (Auto) 0.9 K/mcL (1.5-4.8); Lymphocytes % (Auto) 9.7 % (15.5-49.0); Mean Cell Volume 112.9 fL (80.0-100.0); Mean Corpuscular HGB Conc 34.1 g/dL (31.0-36.0); Mean Corpuscular Hemoglobin 38.5 pg (26.0-34.0); Monocytes # (Auto) 1.4 K/mcL (0.1-0.9); Monocytes % (Auto) 15.2 % (1.0-12.0); Platelet Count 85 K/mcL (140-440); RBC 2.31 M/mcL (4.50-5.90); Red Cell Distribution Width 16.8 % (11.5-14.5)
[2017-09-17] MEDS ORDERED: CLINDAMYCIN 600 MG/4 ML VIAL ONE (02:34)
[2017-09-17] MEDS: CLINDAMYCIN 600 MG in DEXTROSE 5% IN WATER 50 ML IV SCH ×4 (02:39→22:15)
[2017-09-17 02:40] LABS: ALT/SGPT 18 U/l (0-40); Albumin 3.2 gm/dL (3.2-5.2); Albumin/Globulin Ratio 0.8 (1.0-2.3); Alkaline Phosphatase 75 U/L (39-117); Bilirubin,Direct 4.6 mg/dL (0.0-0.3); Blood Urea Nitrogen 7 mg/dl (6-20); Gamma Glutamyl Transpeptidase 55 U/L (8-61); Magnesium 1.7 mg/dL (1.6-2.5); Uric Acid 2.8 mg/dL (2.5-8.0)
[2017-09-17] MEDS: POTASSIUM CHLORIDE 40 MEQ in DEXTROSE 5%-1/2NS 1,000 ML IV SCH (02:43)
[2017-09-17 06:05] LABS: Basophils # (Auto) 0 K/mcL (0.0-0.3); Basophils % (Auto) 0.2 % (0.0-2.0); Eosinophils # (Auto) 0.1 K/mcL (0.0-0.7); Eosinophils % (Auto) 1.4 % (0.0-7.0); Lymphocytes # (Auto) 1.4 K/mcL (1.5-4.8); Lymphocytes % (Auto) 15.4 % (15.5-49.0); Mean Cell Volume 113.8 fL (80.0-100.0); Mean Corpuscular HGB Conc 34.5 g/dL (31.0-36.0); Mean Corpuscular Hemoglobin 39.2 pg (26.0-34.0); Monocytes # (Auto) 1.3 K/mcL (0.1-0.9); Platelet Count 77 K/mcL (140-440); RBC 2.32 M/mcL (4.50-5.90); Red Cell Distribution Width 16.8 % (11.5-14.5)
[2017-09-17] MEDS: 0.9 % SODIUM CHLORIDE 10 ML SYRINGE IV SCH ×6 (06:08→22:14)
[2017-09-17 06:09] LABS: ALT/SGPT 18 U/l (0-40); Albumin 2.9 gm/dL (3.2-5.2); Albumin/Globulin Ratio 0.8 (1.0-2.3); Alkaline Phosphatase 76 U/L (39-117); Bilirubin,Direct 4.4 mg/dL (0.0-0.3); Blood Urea Nitrogen 7 mg/dl (6-20); Gamma Glutamyl Transpeptidase 53 U/L (8-61); Magnesium 1.6 mg/dL (1.6-2.5)
[2017-09-17] MEDS: LORazepam 2 MG/ML VIAL IV PRN ×3 (06:59→22:07)
--- NOTE | 2017-09-17 07:49 | XRay Report ---
HISTORY: Reason for Exam:agitation, pneumonia FINDINGS: There is a moderate-sized alveolar infiltrate in the left lung. The greatest consolidation is present in the left heart border. The infiltrate also extends into the left upper lobe and lingula. The infiltrate has enlarged since 09/15/17. There may be a small left-sided pleural effusion. The right lung is clear. Heart size is within upper limits of normal. IMPRESSION: Worsening pneumonia throughout the left lung Interpreted and Authenticated by: Esteban Soto 09/17/17
[2017-09-17] MEDS: POTASSIUM CHLORIDE 20 MEQ TABLET PO SCH ×3 (08:00→15:40)
[2017-09-17] MEDS: MULTIVIT,THER IRON,CA,FA & MIN 1 TABLET PO SCH ×3 (09:00→15:40)
[2017-09-17] MEDS: LACTULOSE 20 GM/30 ML ORAL.SOL PO SCH ×5 (09:00→20:33)
[2017-09-17] MEDS: ATENOLOL 50 MG TABLET PO SCH ×3 (09:00→22:13)
[2017-09-17] MEDS: THIAMINE 100 MG TABLET PO SCH ×2 (09:00→09:55)
[2017-09-17] MEDS: FOLIC ACID 1 MG TABLET PO SCH ×2 (09:00→09:51)
[2017-09-17] MEDS: prednisoLONE 15 MG/5 ML ORAL SOL PO SCH ×3 (09:00→15:41)
[2017-09-17] MEDS: cefTRIAXone 2 GM VIAL IV SCH (09:55)
--- NOTE | 2017-09-17 10:59 | Internal Med Progress Note ---
Medical - PN: Subj Patient information: Note initiated : 09/17/17 at 10:59 am Service Date, if different from initiated Date: [] Patient: Esteban Almeida 56 y/o M admitted on 09/15/17 for Falls, Swollen Lower Legs/PNA, Cirrhosis of Liver. Chief Complaint: [] Interval history: September 15, 2017: History of present illness: Mr. Almeida is a 56 year old man who was recently diagnosed with liver cirrhosis, is brought in by his family with complaint of increased falls, lower extremity edema, jaundice, shortness of breath. Unfortunately, the family had already gone home by the time the patient arrived on the floor. Patient appears to be an unreliable historian. He reports that his legs have been swelling for the last 3 weeks, and that he fell down today and could not get up because his legs are so heavy. He really cannot recall any other symptoms. He denies fever chills, headaches or dizziness, new eye or ear symptoms, sore throat or cough, chest pain or palpitations, shortness of breath or wheezing, abdominal pain, nausea or vomiting, diarrhea. He does report mild constipation. He does report some difficulty urinating. Records obtained from [facility] show that he was admitted there in May 2017 with jaundice secondary to alcoholic hepatitis, liver cirrhosis secondary to alcohol, cerebellar ataxia, hypokalemia, L3 compression fracture, chronic anemia and thrombocytopenia, alcohol abuse. I spoke with Dr. Archuleta this evening, as he had seen the patient at [facility]. He had hoped the patient had quit drinking alcohol, but apparently the patient did not once he got out of rehab. ER evaluation shows weighted ammonia level, elevated lactic acid level, hypokalemia, markedly elevated bilirubin of 9.6, elevated pro time, and chest x- ray suggests left lower lobe pneumonia with possible effusion. September 16: -Today, the patient continues to deny that he is having problems. He is wondering when he can go home. Last evening, he was unable to empty his bladder , and had a greater than 700 mL postvoid residual, so Graves catheter was placed. He admits he has been having trouble emptying his bladder at home. -He was seen by physical therapy today. He is still too weak to really assist much with transfers, so they are working on that. -He denies significant pain, fever or chills, chest pain or shortness of breath or cough, abdominal pain, nausea or vomiting or diarrhea. His history appears quite unreliable. -Radiology was able to remove approximately 3 L of fluid via paracentesis today. -His father was in the room when I stop by this evening, and I explained that he was having further decompensation of his liver function, and due to ongoing alcohol use. The father, who lives with the patient, says he did not realize the patient was still drinking. Nursing staff tells me that the patient's parents feel that because of worsening weakness they are concerned that they will not be able to handle him at home any longer. September 17: The patient had a very rough evening. In the evening he started to have increased agitation. He was given Ativan per the CIWA protocol. He subsequently had continued agitation, and then started to have trouble maintaining his O2 saturations. He was initially treated for possible volume overload with IV Lasix, but did not seem to respond. His breathing became more labored, and he eventually required oral airway and administration of BiPAP. ABG showed hypercarbia and hypoxia, consistent with hypoventilation. Chest x- ray showed continued left lower lobe infiltrate and possible left pleural effusion. He has had borderline hypotension, but is maintaining mean arterial pressures above 65. Bilirubin had dropped after initiating steroids, but bumped up again today. His nurse notes this morning that he has been too somnolent to take oral meds. The patient remains quite somnolent and confused. He is unable to give any history. His family seems to be surprised by his liver failure, even though this is an ongoing issue. His mother is requesting a cartographic designer come in to administer last rights. She understands that he is not necessarily preterminal , but she also understands that he will likely from liver cirrhosis related complications. - Constitutional Vitals: Vital Signs Temp Pulse Resp BP Pulse Ox 98.9 F 73 16 100/80 96 09/17/17 08:01 09/17/17 09:09 09/17/17 06:49 09/17/17 09:01 09/17/17 09:09 Period Temp Pulse Resp BP Sys/López Pulse Ox Last 24 Hr 98.0 F-99.6 F 62-84 14-24 82-134/26-92 88-100 Intake and Output 09/16/17 09/17/17 09/17/17 21:59 05:59 13:59 Intake Total 2240 / 2240 Output Total 495 / 495 Balance 2240 / 2240 -495 / -495 Weight 247 lb 1.6 oz Intake & Output: Intake & Output 09/16/17 09/17/17 09/17/17 21:59 05:59 13:59 Intake Total 2240 / 2240 Output Total 495 / 495 Balance 2240 / 2240 -495 / -495 Weight 247 lb 1.6 oz Intake: IV 2240 / 2240 Output: Urine Catheter Amount 495 / 495 On exam, he is fairly obtunded. He is currently tolerating the BiPAP mask. Neck shows no obvious JVD or lymphadenopathy. Cardiac exam shows regular rate and rhythm. Lungs: Have a few crackles at the left base, otherwise lungs appear fairly clear. He is not fully cooperative with exam. Abdomen is soft, without obvious tenderness. Extremities: Continue to show severe pitting edema up to the abdomen. Neurologic exam: Patient is obtunded, due to a combination of hepatic encephalopathy and medications for alcohol withdrawal. Medical - PN: Obj Da - Labs CBC & Chem 7: 09/17/17 04:15 09/17/17 04:15 Labs: Abnormal Lab Results 09/17/17 09/17/17 09/17/17 04:15 04:15 01:35 RBC 2.32 L Hgb 9.1 L Hct 26.4 L MCV 113.8 H MCH 39.2 H RDW 16.8 H Plt Count 77 L Lymph % (Auto) 15.4 L Conway % (Auto) 15.0 H Lymph # (Auto) 1.4 L Conway # (Auto) 1.3 H PT INR D-Dimer VBG Lactic Acid Potassium Chloride 94 L 95 L Carbon Dioxide Anion Gap Glucose 129 H 117 H Calcium 7.7 L 7.8 L Magnesium Total Bilirubin 9.3 H 9.8 H Direct Bilirubin 4.4 H 4.6 H AST 56 H 59 H Ammonia Lactate Dehydrogenase 329 H 338 H NT-Pro-B Natriuret Pep 1447.0 H Albumin 2.9 L Globulin 3.8 H 3.8 H Albumin/Globulin Ratio 0.8 L 0.8 L Urine Bilirubin Urine Ictotest Urine Urobilinogen Urine Bacteria Hyaline Casts Urine Mucus Ethyl Alcohol 09/17/17 09/17/17 09/16/17 01:35 01:35 04:22 RBC 2.31 L Hgb 8.9 L Hct 26.1 L MCV 112.9 H MCH 38.5 H RDW 16.8 H Plt Count 85 L Lymph % (Auto) 9.7 L Conway % (Auto) 15.2 H Lymph # (Auto) 0.9 L Conway # (Auto) 1.4 H PT INR D-Dimer 12.27 H VBG Lactic Acid 3.4 H Potassium Chloride Carbon Dioxide Anion Gap Glucose Calcium Magnesium Total Bilirubin Direct Bilirubin AST Ammonia Lactate Dehydrogenase NT-Pro-B Natriuret Pep Albumin Globulin Albumin/Globulin Ratio Urine Bilirubin Urine Ictotest Urine Urobilinogen Urine Bacteria Hyaline Casts Urine Mucus Ethyl Alcohol 09/16/17 09/16/17 09/16/17 04:22 04:22 04:22 RBC 2.28 L Hgb 8.8 L Hct 25.6 L MCV 112.4 H MCH 38.5 H RDW 17.1 H Plt Count 84 L Lymph % (Auto) Conway % (Auto) 20.7 H Lymph # (Auto) 1.1 L Conway # (Auto) 1.1 H PT INR D-Dimer VBG Lactic Acid Potassium 2.4 L* Chloride 95 L Carbon Dioxide Anion Gap Glucose 117 H Calcium 7.2 L Magnesium 1.0 L Total Bilirubin 7.8 H Direct Bilirubin 4.2 H AST 51 H Ammonia 105 H Lactate Dehydrogenase 269 H NT-Pro-B Natriuret Pep Albumin 2.4 L Globulin 3.9 H Albumin/Globulin Ratio 0.6 L Urine Bilirubin Urine Ictotest Urine Urobilinogen Urine Bacteria Hyaline Casts Urine Mucus Ethyl Alcohol 09/15/17 09/15/17 09/15/17 20:10 18:38 18:38 RBC Hgb Hct MCV MCH RDW Plt Count Lymph % (Auto) Conway % (Auto) Lymph # (Auto) Conway # (Auto) PT INR D-Dimer VBG Lactic Acid Potassium Chloride Carbon Dioxide Anion Gap Glucose Calcium Magnesium Total Bilirubin Direct Bilirubin AST Ammonia 232 H Lactate Dehydrogenase NT-Pro-B Natriuret Pep Albumin Globulin Albumin/Globulin Ratio Urine Bilirubin 4.0 A Urine Ictotest Pos A Urine Urobilinogen 4.0 A Urine Bacteria Few A Hyaline Casts 127 H Urine Mucus Many A Ethyl Alcohol 0.046 H 09/15/17 09/15/17 09/15/17 18:38 18:38 18:38 RBC Hgb Hct MCV MCH RDW Plt Count Lymph % (Auto) Conway % (Auto) Lymph # (Auto) Conway # (Auto) PT 23.0 H INR 2.0 H D-Dimer VBG Lactic Acid 9.8 H* Potassium 2.6 L* Chloride 90 L Carbon Dioxide 21 L Anion Gap 25.0 H Glucose Calcium 8.0 L Magnesium Total Bilirubin 9.6 H Direct Bilirubin AST 67 H Ammonia Lactate Dehydrogenase NT-Pro-B Natriuret Pep Albumin 3.0 L Globulin 5.1 H Albumin/Globulin Ratio 0.6 L Urine Bilirubin Urine Ictotest Urine Urobilinogen Urine Bacteria Hyaline Casts Urine Mucus Ethyl Alcohol 09/15/17 18:38 RBC 2.73 L Hgb 10.8 L Hct 31.1 L MCV 113.9 H MCH 39.5 H RDW 16.4 H Plt Count 129 L Lymph % (Auto) Conway % (Auto) 18.2 H Lymph # (Auto) Conway # (Auto) 1.4 H PT INR D-Dimer VBG Lactic Acid Potassium Chloride Carbon Dioxide Anion Gap Glucose Calcium Magnesium Total Bilirubin Direct Bilirubin AST Ammonia Lactate Dehydrogenase NT-Pro-B Natriuret Pep Albumin Globulin Albumin/Globulin Ratio Urine Bilirubin Urine Ictotest Urine Urobilinogen Urine Bacteria Hyaline Casts Urine Mucus Ethyl Alcohol September 17: ABG on BiPAP, 07/16, FiO2 60%: PH 7.38, PCO2 59, PO2 107, bicarb 34, O2 saturation 98% September 16: (Around midnight): ABG on 5 L oxygen mask: PH 7.38, PCO2 56, PO2 47, bicarb 33, 82% saturated Peritoneal fluid: PH 7.63. CBC shows 2% neutrophils, 44 lymphocytes, 46 mesothelial cells. Protein is 1.7. Albumin 0.7. Culture negative. September 15: Pro time is 23 with INR of 2.0 CBC: White blood cell count is 7900, hemoglobin 10.8, hematocrit 31, platelets 129,000. Absolute monocyte count is 1400. Chemistry panel: Show sodium 136, potassium 2.6, chloride 90, CO2 21, anion gap 25, BUN 8, creatinine 1.0 Calcium 8.0, total bilirubin 9.6, AST 67, ALT 21, alk phos 115, albumin 3.0, globulin 5.1 Ammonia 232 Lactic acid is elevated at 9.8 Urinalysis: Urine bilirubin is 4.0, ictotest is positive, urobilinogen is 4.0, few urine bacteria. 127 hyaline casts. Alcohol level is elevated at 0.046 Chest x-ray: Moderate left lower lobe consolidation. Possible left-sided pleural effusion. Mild compression fractures of the endplate of T12, old. Mild cardiomegaly. Head CT done at [facility] in May 2017 showed no acute process. Abdominal and pelvic CT showed cirrhosis of the liver with portal venous hypertension, pancreatitis, distended gallbladder, L1 and L3 superior endplate compression changes and L3 compression fracture, evidence of right renal atrophy Ultrasound showed distended gallbladder with sludge MRCP showed significantly distended gallbladder with some sludge of the neck but no biliary duct dilation. Labs on admission in May showed platelet count of 88,000, sodium 132, potassium 2.4, total bilirubin of 10 AST 91, alcohol blood level of less than 0.01. Meds: Medications Acetaminophen (Tylenol) 650 mg PO Q6HP PRN PRN Reason: PAIN/FEVER > 101 Albuterol Sulfate (Ventolin) 2.5 mg NEB TID [facility] Last Admin: 09/17/17 09:58 Dose: 2.5 mg Atenolol (Tenormin) 25 mg PO HS [facility] Last Admin: 09/16/17 21:01 Dose: 25 mg Atenolol (Tenormin) 50 mg PO QAM [facility] Last Admin: 09/17/17 09:52 Dose: 50 mg Ceftriaxone Sodium (Rocephin) 2 gm IV Q24H [facility] Last Admin: 09/17/17 09:55 Dose: 2 gm Docusate Sodium (Colace) 100 mg PO BID PRN PRN Reason: Constipation Folic Acid (Folic Acid) 1 mg PO DAILY [facility] Last Admin: 09/17/17 09:51 Dose: 1 mg Potassium Chloride/Dextrose/Sod Cl (Dextrose 5%-1/2ns W/40meq Kcl) 1,000 mls @ 50 mls/hr IV .Q20H [facility] Last Admin: 09/16/17 21:03 Dose: 50 mls/hr Clindamycin Phosphate 600 mg/ (Dextrose) 54 mls @ 100 mls/hr IV Q8H [facility] Last Admin: 12/07/17 08:00 Dose: 100 mls/hr Iron Carb/Multivit/[place]/Folic Acid (Multivitamin W/Minerals) 1 tab PO DAILY [facility] Last Admin: 09/17/17 09:52 Dose: 1 tab Lactulose (Cephulac) 20 gm PO QID [facility] Last Admin: 09/17/17 09:51 Dose: 20 gm Lorazepam (Ativan) 0 mg IV Q4HP PRN; Protocol PRN Reason: Alcohol Withdrawal Last Admin: 09/17/17 06:59 Dose: 2 mg Naloxone HCl (Narcan) 0.1 mg IV Q2MIN PRN PRN Reason: Opiate Reversal Ondansetron HCl (Zofran) 4 mg IV Q6HP PRN PRN Reason: Nausea And Vomiting Oxycodone HCl (Roxicodone) 5 mg PO Q4HP PRN PRN Reason: Pain Last Admin: 09/16/17 21:01 Dose: 5 mg Potassium Chloride (Kdur) 40 meq PO BIDCC [facility] Last Admin: 09/17/17 09:51 Dose: 40 meq Prednisone (Prednisolone) 40 mg PO DAILY [facility] Last Admin: 09/17/17 09:51 Dose: 40 mg Sodium Chloride (Saline Flush) 10 ml IV Q8 [facility] Last Admin: 09/17/17 06:08 Dose: Not Given Sodium Chloride (Saline Flush) 10 ml IV Q8 [facility] Last Admin: 09/17/17 06:09 Dose: Not Given Tamsulosin HCl (Flomax) 0.4 mg PO HS [facility] Last Admin: 09/16/17 21:00 Dose: 0.4 mg Thiamine HCl (Vitamin B1) 100 mg PO QDAY [facility] Last Admin: 09/17/17 09:55 Dose: 100 mg Medical - PN: A/P - Time Spent With Patient Total time spent is greater than 50% in coordination of care (as documented) at patient's floor/unit and/or counseling patient: Greater than 35 minutes (1) Left lower lobe pneumonia Status: Acute Current Visit: Yes (2) Lactic acidosis Status: Acute Current Visit: Yes (3) Cirrhosis of liver Status: Chronic Current Visit: Yes (4) Hypokalemia Status: Acute Current Visit: No - Narrative A/P Narrative: #1. Infectious disease. Patient presents with apparent left lower lobe pneumonia, lactic acidosis, possible SBP, possible early sepsis. -Peritoneal fluid studies do not appear consistent with SBP at this time. -Chest x-ray is still consistent with pneumonia, although patient has not had significant cough or fever. Continue Rocephin for community-acquired pneumonia , plus clindamycin for possible aspiration and staff. Blood urine and sputum cultures are pending. Ascitic fluid cultures are pending as well area The patient continues on IV Rocephin, to cover both his lungs and his belly. ( although GI recommends cefotaxime and this is I am not sure this is on our formulary) #2. Pulmonary. Patient experienced apparent respiratory depression yesterday, likely due to administration of Ativan. He is now oxygenating well with the use of BiPAP. He is still actively withdrawing from alcohol, so I do not think we can discontinue Ativan just yet. We will continue to support his breathing with BiPAP, as tolerated. 3. GI. Patient presents with history of cirrhosis, relatively recent. Clinically has severe liver dysfunction. -Hepatitis, with a MADDRY discriminant function of 60. This was reviewed with Dr. Archuleta of GI, and he suggests we treat him with prednisolone 40 mg daily for 30 days, and then do a 16 day taper by 10 mg per day every 4 days. -Serum to albumin gradient is suggestive of portal hypertension. -Patient was given IV Lasix last night, but has not really responded. He was given IV albumin yesterday after his paracentesis. His weight has dropped by approximately 3 pounds. - Titrate lactulose to 3 bowel movements per day. 4. History of alcohol abuse -Patient appeared to develop worsening symptoms of alcohol withdrawal last night. He was given Ativan her the CIWA protocol. He is still very restless, with significant confusion. 5. DVT prophylaxis: Patient is auto anticoagulated. 6. Neurologic. Failure to thrive. History of cerebellar degeneration. Patient apparently is no longer ambulatory , although he can stand for transfers normally. His mother reports that he just has trouble walking because his legs are so heavy with edema. She says she did make [facility], but declined again after he returned home. -PT and OT . It appears patient is struggling at home, and may need placement. #7. Poor nutritional status. Dietary consult. 8. Cardiac. 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 Consider echocardiogram. 9. . Is experiencing urinary retention. Continue Graves catheter for now. Add Flomax. 10. CODE STATUS: Full code. Patient believes his father would act as his POA. Approximately 35 minutes was spent so far today, reviewing test results, examining the patient, reviewing plan of care with staff, and approximately 45 minutes of critical care was performed since midnight, regarding respiratory failure and altered mental status. Medical - PN: Qual - VTE Deep Vein Thrombosis/Pulmonary Embolism Present on Admission: No
[2017-09-17] MEDS: DEXTROSE 5%-1/2NS W/40MEQ KCL 1,000 ML IV SCH ×3 (15:42→23:07)
[2017-09-17] MEDS: TAMSULOSIN 0.4 MG CAPSULE PO SCH (20:33)
[2017-09-17] MEDS: oxyCODONE HCL 5 MG TABLET PO PRN (20:33)
[2017-09-18] MEDS: LORazepam 2 MG/ML VIAL IV PRN ×2 (00:29→21:16)
[2017-09-18 04:53] LABS: Basophils # (Auto) 0 K/mcL (0.0-0.3); Basophils % (Auto) 0.3 % (0.0-2.0); Eosinophils # (Auto) 0 K/mcL (0.0-0.7); Eosinophils % (Auto) 0.3 % (0.0-7.0); Granulocytes % (Auto) 79.6 % (38.0-78.0); Lymphocytes # (Auto) 0.5 K/mcL (1.5-4.8); Lymphocytes % (Auto) 8.7 % (15.5-49.0); Mean Cell Volume 113.8 fL (80.0-100.0); Mean Corpuscular HGB Conc 34.6 g/dL (31.0-36.0); Mean Corpuscular Hemoglobin 39.4 pg (26.0-34.0); Monocytes # (Auto) 0.6 K/mcL (0.1-0.9); Monocytes % (Auto) 11.1 % (1.0-12.0); Platelet Count 70 K/mcL (140-440); RBC 2.06 M/mcL (4.50-5.90); Red Cell Distribution Width 17.2 % (11.5-14.5)
[2017-09-18 05:20] LABS: ALT/SGPT 18 U/l (0-40); Albumin 2.7 gm/dL (3.2-5.2); Albumin/Globulin Ratio 0.8 (1.0-2.3); Alkaline Phosphatase 66 U/L (39-117); Bilirubin,Direct 4.4 mg/dL (0.0-0.3); Blood Urea Nitrogen 10 mg/dl (6-20); Gamma Glutamyl Transpeptidase 51 U/L (8-61); Magnesium 1.7 mg/dL (1.6-2.5); Uric Acid 3.4 mg/dL (2.5-8.0)
[2017-09-18] MEDS: 0.9 % SODIUM CHLORIDE 10 ML SYRINGE IV SCH ×7 (06:04→21:08)
[2017-09-18] MEDS: CLINDAMYCIN 600 MG in DEXTROSE 5% IN WATER 50 ML IV SCH ×3 (06:05→22:15)
[2017-09-18] MEDS: DEXTROSE 5%-1/2NS W/40MEQ KCL 1,000 ML IV SCH ×2 (07:18→13:21)
[2017-09-18] MEDS: ALBUTEROL SULFATE 2.5 MG/3 ML NEBULIZER NEB SCH ×3 (08:18→21:03)
--- NOTE | 2017-09-18 08:25 | XRay Report ---
HISTORY: Reason for Exam:dyspnea and pneumonia There is a large alveolar infiltrate in the left lower lobe extending up to and partially surrounding the hilum. This has become worse laterally in the left lower lobe since 09/16/17. A small zone of consolidated lung parenchyma has now developed medially in the right lower lobe, behind the right heart border. There may be a small left pleural effusion. Heart size remains within upper limits of normal. The pulmonary vessels, best seen in the right lung are normal in caliber. IMPRESSION: Worsening bilateral pneumonia Interpreted and Authenticated by: Esteban Soto 09/18/17
[2017-09-18] MEDS: VANCOMYCIN 1,500 MG in 0.9 % SODIUM CHLORIDE 500 ML IV SCH ×2 (09:00→21:08)
[2017-09-18] MEDS: LACTULOSE 20 GM/30 ML ORAL.SOL PO SCH ×4 (09:09→21:06)
[2017-09-18] MEDS: prednisoLONE 15 MG/5 ML ORAL SOL PO SCH (09:09)
[2017-09-18] MEDS: MULTIVIT,THER IRON,CA,FA & MIN 1 TABLET PO SCH (09:09)
[2017-09-18] MEDS: FOLIC ACID 1 MG TABLET PO SCH (09:09)
[2017-09-18] MEDS: POTASSIUM CHLORIDE 20 MEQ TABLET PO SCH ×2 (09:09→16:03)
[2017-09-18] MEDS: ATENOLOL 50 MG TABLET PO SCH ×2 (09:09→21:08)
[2017-09-18] MEDS ORDERED: VANCOMYCIN PER PHARMACY IV SCH (09:23)
[2017-09-18] MEDS ORDERED: 0.9 % SODIUM CHLORIDE 500 ML IV ONE (09:25)
[2017-09-18] MEDS: THIAMINE 100 MG TABLET PO SCH (09:32)
[2017-09-18] MEDS: cefTRIAXone 2 GM VIAL IV SCH (09:32)
[2017-09-18] MEDS ORDERED: 0.9 % SODIUM CHLORIDE 10 ML SYRINGE IV PRN (12:09)
--- NOTE | 2017-09-18 12:26 | XRay Report ---
HISTORY: Reason for Exam:PICC PLACEMENT FINDINGS: A PICC line has been placed through the right arm. The tip is located in the superior vena cava, above the right atrium. There is no pneumothorax, pleural effusion or widening of the mediastinum. There is a large consolidating infiltrate in the left lower lobe and small infiltrate behind the right heart border. The infiltrates have remained stable since 8:01 AM on the same date. IMPRESSION: No complication following PICC line placement. ICU was called with results Interpreted and Authenticated by: Esteban Soto 09/18/17
--- NOTE | 2017-09-18 14:36 | Nephrology Progress Note ---
Subjective Patient information: Note initiated : 09/18/17 at 2:31 pm Service Date, if different from initiated Date: [] Patient: Esteban Almeida 56 y/o M admitted on 09/15/17 for Falls, Swollen Lower Legs/PNA, Cirrhosis of Liver. Chief Complaint: [] Principal diagnosis: PNA, liver cirrhosis, JOAQUÍN Interval history: Patient is a 56 y/o white male with PMH of cirrhosis of liver from alcohol abuse who is admitted with c/o weakness, falls at home He was diagnosed to have hepatic encephalopathy, ascites and PNA on evaluation in ER and was hospitalised for further management Patient is not able to provide any history and information is obtained from review of medical records Patient was diagnosed with alcoholic liver disease in 05/2017 when he was hospitalised at [facility] with jaundice. He has been on diuretics since then along with other medications He however continued to drink alcohol. His family noticed he was getting more weak and was having recurrent falls and hence he was tanvi to ER Through the hospital course, pt has been diagnosed with acute on chronic liver failure with very high discriminant index and is on prednisone per GI recommendation He is on antibiotics for B/L PNA. He was getting IV fluids and lasix for poor urinary ouput, he has made only 200cc yesterday and he has been oliguric today and hence nephrology is been consulted Pertinent ROS: note started in erros please see consult note for further details Objective - Vital Signs Vital signs: Vital Signs Temp Pulse Pulse Resp BP Pulse Ox 09/18/17 13:01 62 105/74 94 09/18/17 12:56 96.3 F L 59 L 15 115/60 94 09/18/17 12:53 130/107 09/18/17 11:01 98.4 F 94/61 91 09/18/17 10:00 108/60 94 09/18/17 09:33 91/79 93 09/18/17 09:00 93/64 92 09/18/17 08:43 71 22 95 09/18/17 08:31 68 22 95 09/18/17 08:18 70 18 09/18/17 08:00 98.1 F 16 89/78 93 09/18/17 07:54 83 16 92 09/18/17 07:52 68 96 09/18/17 07:18 68 13 95 09/18/17 07:00 98.7 F 16 86/64 09/18/17 06:03 18 102/49 84 L 09/18/17 06:01 16 74/61 97 09/18/17 05:50 68 15 95 09/18/17 05:04 18 90/55 99 09/18/17 05:01 17 89/52 96 09/18/17 04:01 97.6 F 63 14 72/54 94 09/18/17 03:31 102/78 09/18/17 03:30 66 13 97 09/18/17 03:01 67 87/49 97 09/18/17 02:03 76 112/92 97 09/18/17 01:59 77 20 96 09/18/17 01:39 78 102/75 92 09/18/17 01:04 86/44 09/18/17 00:46 76 100/87 95 09/18/17 00:31 98.4 F 108/74 09/18/17 00:22 77 96/65 94 09/18/17 00:07 77 89 L 09/17/17 23:46 77 82/71 97 09/17/17 23:40 74 20 90 09/17/17 23:31 74 81/62 97 09/17/17 23:16 103/55 09/17/17 23:03 87/69 09/17/17 22:46 77 94/57 94 09/17/17 22:30 74 82/61 97 09/17/17 22:01 96/42 09/17/17 22:00 94 09/17/17 21:01 76 97/63 95 09/17/17 20:50 74 20 91 09/17/17 20:01 97.3 F 74 17 93/52 96 09/17/17 19:01 72 94/69 94 09/17/17 18:43 70 95 09/17/17 18:01 70 98/62 95 09/17/17 17:01 68 82/55 96 09/17/17 16:16 74 18 96 09/17/17 16:00 97.3 F 70 15 106/78 96 09/17/17 15:01 98.4 F 16 106/78 93 Intake and Output 09/18/17 09/18/17 09/18/17 05:59 13:59 21:59 Intake Total 207 / 207 1182 / 1182 Output Total 75 / 75 Balance 132 / 132 1182 / 1182 Intake: IV 1062 / 1062 Cleocin 600 mg In Dextrose 5% 54 / 54 54 / 54 in Water 50 ml @ 100 mls/hr IV Q8H [facility] Rx#:[id number] Dextrose 5%-1/2Ns W/40Meq KCl 1 1000 / 1000 ,000 ml @ 125 mls/hr IV .Q8H [facility] Rx#:[id number] Oral 120 / 120 Output: Urine Catheter Amount 75 / 75 Other: Meal Breakfast Percent of Meal Consumed 25% Intake & Output: Intake & Output 09/18/17 09/18/17 09/18/17 05:59 13:59 21:59 Intake Total 1182 / 1182 Output Total 75 / 75 Balance 132 / 132 1182 / 1182 Intake: IV 1062 / 1062 Cleocin 600 mg In Dextrose 5% 54 / 54 54 / 54 in Water 50 ml @ 100 mls/hr IV Q8H [facility] Rx#:[id number] Dextrose 5%-1/2Ns W/40Meq KCl 1 1000 / 1000 ,000 ml @ 125 mls/hr IV .Q8H [facility] Rx#:[id number] Oral 120 / 120 Output: Urine Catheter Amount 75 / 75 Other: Meal Breakfast Percent of Meal Consumed 25% - Lab 09/20/17 04:58 09/20/17 04:58 Most recent lab results Calcium 7.5 mg/dl (8.6-10.4) L 09/18/17 03:54 Phosphorus 4.8 mg/dL (2.7-4.5) H 09/18/17 03:54 Magnesium 1.7 mg/dL (1.6-2.5) 09/18/17 03:54
--- NOTE | 2017-09-18 14:39 | Nephrology Consult Note ---
History of Present Illness - Reason for Consult Patient information: Note initiated : 09/18/17 at 2:37 pm Service Date, if different from initiated Date: [] Patient: Esteban Almeida 56 y/o M admitted on 09/15/17 for Falls, Swollen Lower Legs/PNA, Cirrhosis of Liver. Chief Complaint: [] Consult date: 09/18/17 acute renal failure Requesting physician: Monie Goodwin - Chief Complaint AMS - History of Present Illness Patient is a 56 y/o white male with PMH of cirrhosis of liver from alcohol abuse who is admitted with c/o weakness, falls at home He was diagnosed to have hepatic encephalopathy, ascites and PNA on evaluation in ER and was hospitalised for further management Patient is not able to provide any history and information is obtained from review of medical records Patient was diagnosed with alcoholic liver disease in 05/2017 when he was hospitalised at [facility] with jaundice. He has been on diuretics since then along with other medications He however continued to drink alcohol. His family noticed he was getting more weak and was having recurrent falls and hence he was tanvi to ER Through the hospital course, pt has been diagnosed with acute on chronic liver failure with very high discriminant index and is on prednisone per GI recommendation He is on antibiotics for B/L PNA. He was getting IV fluids and lasix for poor urinary ouput, he has made only 200cc yesterday and he has been oliguric today and hence nephrology is been consulted Review of Systems ROS unobtainable: due to mental status Past History Past medical history: Alcoholic liver disease anemia/thrombocytopenia cerebellar ataxia Past surgical history: unable to obtain Past family history: unable to obtain Past social history: lives with his father, chews tobacco and was drinking berr and alcohol prior to admission Medications and Allergies Home Medications Medication Instructions Recorded Confirmed Type Allopurinol [Zylopriim] 300 mg PO DAILY 09/15/17 09/15/17 History Atenolol [Tenormin] 50 mg PO BID 09/15/17 09/15/17 History Furosemide [Lasix] 40 mg PO DAILY 09/15/17 09/15/17 History Potassium Chloride [Kdur] 4 tab PO DAILY 09/15/17 09/15/17 History amLODIPine [Norvasc] 5 mg PO DAILY 09/15/17 09/15/17 History oxyCODONE HCL [Oxycodone HCl] 1 tablet PO Q6H PRN 09/15/17 09/15/17 History Allergies Allergy/AdvReac Type Severity Reaction Status Date / Time Penicillins [PENICILLINS] Allergy Severe ANGIOEDEMA Verified 09/15/17 18:23 Latex, Natural Rubber AdvReac Severe Itching Verified 09/16/17 07:39 Exam - Vital Signs Vital signs: Temp Pulse Resp BP Pulse Ox 96.3 F L 62 15 105/74 94 09/18/17 12:56 09/18/17 13:01 09/18/17 12:56 09/18/17 13:01 09/18/17 13:01 - General Appearance General appearance: appears started age, obese EENT: scleral icterus Neck: no JVD Respiratory: clear (CTA, on Bipap ventilation) Cardiology: edema (in sacral region and UE ), normal S1, normal S2 Gastrointestinal: no tenderness (DISTENDED ), no guarding Integumentary: warm and dry (HAS Spider angioma on the chest wall ) Neurologic: obtunded Musculoskeletal: no erythema, no cyanosis Results - Lab Results 09/18/17 03:54 09/18/17 03:54 Most recent lab results Calcium 7.5 mg/dl (8.6-10.4) L 09/18/17 03:54 Phosphorus 4.8 mg/dL (2.7-4.5) H 09/18/17 03:54 Magnesium 1.7 mg/dL (1.6-2.5) 09/18/17 03:54 Assessment and Plan (1) Cirrhosis of liver Status: Chronic (2) Left lower lobe pneumonia Status: Acute (3) Acute renal failure (ARF) acute renal failure with s.creatinine trend of 0.8-0.8-0.8-1.2 and only 200 cc urine output in the last 24 hrs BP is in 100's systolic he has peripheral edema on exam and he is almost 4.5L net positive on fluid balance this hospital stay, so seems fluid resuscitated He may be having type 1 HRS given his cirrhosis of liver vs other etiology I will obtain urinary studies including urine sodium, urea,creatinine and protein to ensure no other possible etiology his hemodynamic status is stable he seems adequately fluid resuscitated so will hold maintenance IVF Will follow the urinary studies and if picture compatible with HRS will start the pt on octreotide and IV albumin There is no emergent need for dialysis, however if patient does not respond to treatment he may obviously need this and then we may have to transfer him to a tertiary care facility as we do not have an acute industrial relations commissioner dialysis nurse I have discussed all this with patient;s father I will follow him closely please dose the meds to egfr less than 10 given patient is anuric since this am Thank you for giving me an opportunity to participate in Mr Almeida's medical care unfortunately patient has very poor prognosis with very high mortality rate this hospitalizatio and this was explained to his father Status: Acute
[2017-09-18 15:00] LABS: Appearance,Urine HAZY; Bacteria,Urine 0 /hpf (0); Color,Urine AMBER; Glucose,Urine (UA) 50 mg/dL (NEG); Leukocyte Esterase,Urine NEG /uL (NEG); Mucus,Urine MANY /hpf (0); Nitrate,Urine NEG (NEG); Protein,Urine 100 mg/dL (NEG); Specific Gravity,Urine 1.026 (1.000-1.035); Urine Blood >=1.0 mg/dL (<0.03); Urine Hyaline Cast 32 /lpf (0-2); Urine RBC > 182 /hpf (0-1); Urine Squamous Epithelial Cell 0 /hpf (0-4); Urine WBC 6 /hpf (0-4)
--- NOTE | 2017-09-18 15:05 | Internal Med Progress Note ---
Medical - PN: Subj Patient information: Note initiated : 09/18/17 at 3:01 pm Service Date, if different from initiated Date: [] Patient: Esteban Almeida 56 y/o M admitted on 09/15/17 for Falls, Swollen Lower Legs/PNA, Cirrhosis of Liver. Chief Complaint: [] Interval history: September 15, 2017: History of present illness: Mr. Almeida is a 56 year old man who was recently diagnosed with liver cirrhosis, is brought in by his family with complaint of increased falls, lower extremity edema, jaundice, shortness of breath. Unfortunately, the family had already gone home by the time the patient arrived on the floor. Patient appears to be an unreliable historian. He reports that his legs have been swelling for the last 3 weeks, and that he fell down today and could not get up because his legs are so heavy. He really cannot recall any other symptoms. He denies fever chills, headaches or dizziness, new eye or ear symptoms, sore throat or cough, chest pain or palpitations, shortness of breath or wheezing, abdominal pain, nausea or vomiting, diarrhea. He does report mild constipation. He does report some difficulty urinating. Records obtained from [facility] show that he was admitted there in May 2017 with jaundice secondary to alcoholic hepatitis, liver cirrhosis secondary to alcohol, cerebellar ataxia, hypokalemia, L3 compression fracture, chronic anemia and thrombocytopenia, alcohol abuse. I spoke with Dr. Archuleta this evening, as he had seen the patient at [facility]. He had hoped the patient had quit drinking alcohol, but apparently the patient did not once he got out of rehab. ER evaluation shows weighted ammonia level, elevated lactic acid level, hypokalemia, markedly elevated bilirubin of 9.6, elevated pro time, and chest x- ray suggests left lower lobe pneumonia with possible effusion. September 16: -Today, the patient continues to deny that he is having problems. He is wondering when he can go home. Last evening, he was unable to empty his bladder , and had a greater than 700 mL postvoid residual, so Graves catheter was placed. He admits he has been having trouble emptying his bladder at home. -He was seen by physical therapy today. He is still too weak to really assist much with transfers, so they are working on that. -He denies significant pain, fever or chills, chest pain or shortness of breath or cough, abdominal pain, nausea or vomiting or diarrhea. His history appears quite unreliable. -Radiology was able to remove approximately 3 L of fluid via paracentesis today. -His father was in the room when I stop by this evening, and I explained that he was having further decompensation of his liver function, and due to ongoing alcohol use. The father, who lives with the patient, says he did not realize the patient was still drinking. Nursing staff tells me that the patient's parents feel that because of worsening weakness they are concerned that they will not be able to handle him at home any longer. September 17: The patient had a very rough evening. In the evening he started to have increased agitation. He was given Ativan per the [facility] protocol. He subsequently had continued agitation, and then started to have trouble maintaining his O2 saturations. He was initially treated for possible volume overload with IV Lasix, but did not seem to respond. His breathing became more labored, and he eventually required oral airway and administration of BiPAP. ABG showed hypercarbia and hypoxia, consistent with hypoventilation. Chest x- ray showed continued left lower lobe infiltrate and possible left pleural effusion. He has had borderline hypotension, but is maintaining mean arterial pressures above 65. Bilirubin had dropped after initiating steroids, but bumped up again today. His nurse notes this morning that he has been too somnolent to take oral meds. The patient remains quite somnolent and confused. He is unable to give any history. His family seems to be surprised by his liver failure, even though this is an ongoing issue. His mother is requesting a shuttle filler come in to administer last rights. She understands that he is not necessarily preterminal , but she also understands that he will likely from liver cirrhosis related complications. September 18: -The patient again had a very difficult night. He again had agitation last night which did not respond very well to Ativan. We then gave him 1 dose of morphine, which seemed to help him relax. He does require BiPAP to maintain his oxygen saturations most of the time, although he has come off the BiPAP this morning. -He was mostly obtunded yesterday, but is more awake this morning he says he is feeling okay. He continues to deny fever or chills, cough or shortness of breath. His chest x-ray shows worsening pneumonia. -I reviewed his case in detail with Dr. Archuleta of GI this morning. The patient's blood pressures have been running low, and urine output is minimal. He has not responded to either fluid challenge or diuretics. We also have not been able to get any nutrition into him because of his obtunded state. Dr. Archuleta is very concerned that the patient is developing hepatorenal syndrome, and that his risk of mortality is increasingly high. I reviewed his case briefly with Dr. Becker from nephrology. She is now consulting, and will consider whether to try albumin and Lasix to improve urine output, or vasopressors. If that ends up being unsuccessful, then she would recommend that we transfer the patient to a larger center where he would have access to a full range of specialist. -I spent quite a while last evening reviewing the patient's status and test results with his sister, who is also a physician. -Otherwise, this morning, the patient continues fairly confused. He continues to deny any pain, chest pain or palpitations, shortness of breath, abdominal pain, nausea or vomiting or diarrhea, but his history is quite unreliable. The nurses can occasionally get a few tablespoons of something and then by mouth, but he is in general not alert enough to take in very much. - Constitutional Vitals: Vital Signs Temp Pulse Resp BP Pulse Ox 96.3 F L 62 15 105/74 94 09/18/17 12:56 09/18/17 13:01 09/18/17 12:56 09/18/17 13:01 09/18/17 13:01 Period Temp Pulse Resp BP Sys/López Pulse Ox Last 24 Hr 96.3 F-98.7 F 59-83 13-22 72-130/42-107 84-99 Intake and Output 09/18/17 09/18/17 09/18/17 05:59 13:59 21:59 Intake Total / 207 1182 / 1182 Output Total 75 / 75 Balance 132 / 132 1182 / 1182 Intake & Output: Intake & Output 09/18/17 09/18/17 09/18/17 05:59 13:59 21:59 Intake Total / 1182 / 1182 Output Total 75 / 75 Balance 132 / 132 1182 / 1182 Intake: IV 207 / 207 1062 / 1062 Cleocin 600 mg In Dextrose 5% 54 / 54 54 / 54 in Water 50 ml @ 100 mls/hr IV Q8H [facility] Rx#:[id number] Dextrose 5%-1/2Ns W/40Meq KCl 1 1000 / 1000 ,000 ml @ 125 mls/hr IV .Q8H [facility] Rx#:[id number] Oral 120 / 120 Output: Urine Catheter Amount 75 / 75 Other: Meal Breakfast Percent of Meal Consumed 25% On exam, he is less obtunded than yesterday. He is sitting up in a chair. He is able to answer some questions, but still seems quite lethargic. Neck shows no obvious JVD or lymphadenopathy. Cardiac exam shows regular rate and rhythm. Lungs: Have a few crackles at the left base, otherwise lungs appear fairly clear. He is not fully cooperative with exam. Abdomen is soft, without obvious tenderness. Extremities: Continue to show severe pitting edema up to the abdomen. Neurologic exam: Patient is lethargic, at least partly due to a combination of hepatic encephalopathy and medications for alcohol withdrawal. Medical - PN: Obj Da - Labs CBC & Chem 7: 09/18/17 03:54 09/18/17 03:54 Labs: Abnormal Lab Results 09/18/17 09/18/17 09/18/17 14:24 03:54 03:54 RBC 2.06 L Hgb 8.1 L Hct 23.4 L MCV 113.8 H MCH 39.4 H RDW 17.2 H Plt Count 70 L Gran % 79.6 H Lymph % (Auto) 8.7 L [place] % (Auto) Lymph # (Auto) 0.5 L [place] # (Auto) PT INR D-Dimer VBG Lactic Acid Potassium Chloride Carbon Dioxide Anion Gap Glucose 159 H Calcium 7.5 L Phosphorus 4.8 H Magnesium Total Bilirubin 7.5 H Direct Bilirubin 4.4 H AST 60 H Ammonia Lactate Dehydrogenase 272 H NT-Pro-B Natriuret Pep Albumin 2.7 L Globulin Albumin/Globulin Ratio 0.8 L Urine Protein 100 A Urine Glucose (UA) 50 A Urine Occult Blood >=1.0 A Urine Bilirubin Urine Ictotest Urine Urobilinogen 4.0 A Urine RBC > 182 H Urine WBC 6 H Urine Bacteria Hyaline Casts 32 H Urine Mucus Many A Ethyl Alcohol 09/17/17 09/17/17 09/17/17 04:15 04:15 01:35 RBC 2.32 L Hgb 9.1 L Hct 26.4 L MCV 113.8 H MCH 39.2 H RDW 16.8 H Plt Count 77 L Gran % Lymph % (Auto) 15.4 L [place] % (Auto) 15.0 H Lymph # (Auto) 1.4 L [place] # (Auto) 1.3 H PT INR D-Dimer VBG Lactic Acid Potassium Chloride 94 L 95 L Carbon Dioxide Anion Gap Glucose 129 H 117 H Calcium 7.7 L 7.8 L Phosphorus Magnesium Total Bilirubin 9.3 H 9.8 H Direct Bilirubin 4.4 H 4.6 H AST 56 H 59 H Ammonia Lactate Dehydrogenase 329 H 338 H NT-Pro-B Natriuret Pep 1447.0 H Albumin 2.9 L Globulin 3.8 H 3.8 H Albumin/Globulin Ratio 0.8 L 0.8 L Urine Protein Urine Glucose (UA) Urine Occult Blood Urine Bilirubin Urine Ictotest Urine Urobilinogen Urine RBC Urine WBC Urine Bacteria Hyaline Casts Urine Mucus Ethyl Alcohol 09/17/17 09/17/17 09/16/17 01:35 01:35 04:22 RBC 2.31 L Hgb 8.9 L Hct 26.1 L MCV 112.9 H MCH 38.5 H RDW 16.8 H Plt Count 85 L Gran % Lymph % (Auto) 9.7 L [place] % (Auto) 15.2 H Lymph # (Auto) 0.9 L [place] # (Auto) 1.4 H PT INR D-Dimer 12.27 H VBG Lactic Acid 3.4 H Potassium Chloride Carbon Dioxide Anion Gap Glucose Calcium Phosphorus Magnesium Total Bilirubin Direct Bilirubin AST Ammonia Lactate Dehydrogenase NT-Pro-B Natriuret Pep Albumin Globulin Albumin/Globulin Ratio Urine Protein Urine Glucose (UA) Urine Occult Blood Urine Bilirubin Urine Ictotest Urine Urobilinogen Urine RBC Urine WBC Urine Bacteria Hyaline Casts Urine Mucus Ethyl Alcohol 09/16/17 09/16/17 09/16/17 04:22 04:22 04:22 RBC 2.28 L Hgb 8.8 L Hct 25.6 L MCV 112.4 H MCH 38.5 H RDW 17.1 H Plt Count 84 L Gran % Lymph % (Auto) [place] % (Auto) 20.7 H Lymph # (Auto) 1.1 L [place] # (Auto) 1.1 H PT INR D-Dimer VBG Lactic Acid Potassium 2.4 L* Chloride 95 L Carbon Dioxide Anion Gap Glucose 117 H Calcium 7.2 L Phosphorus Magnesium 1.0 L Total Bilirubin 7.8 H Direct Bilirubin 4.2 H AST 51 H Ammonia 105 H Lactate Dehydrogenase 269 H NT-Pro-B Natriuret Pep Albumin 2.4 L Globulin 3.9 H Albumin/Globulin Ratio 0.6 L Urine Protein Urine Glucose (UA) Urine Occult Blood Urine Bilirubin Urine Ictotest Urine Urobilinogen Urine RBC Urine WBC Urine Bacteria Hyaline Casts Urine Mucus Ethyl Alcohol 09/15/17 09/15/17 09/15/17 20:10 18:38 18:38 RBC Hgb Hct MCV MCH RDW Plt Count Gran % Lymph % (Auto) [place] % (Auto) Lymph # (Auto) [place] # (Auto) PT INR D-Dimer VBG Lactic Acid Potassium Chloride Carbon Dioxide Anion Gap Glucose Calcium Phosphorus Magnesium Total Bilirubin Direct Bilirubin AST Ammonia 232 H Lactate Dehydrogenase NT-Pro-B Natriuret Pep Albumin Globulin Albumin/Globulin Ratio Urine Protein Urine Glucose (UA) Urine Occult Blood Urine Bilirubin 4.0 A Urine Ictotest Pos A Urine Urobilinogen 4.0 A Urine RBC Urine WBC Urine Bacteria Few A Hyaline Casts 127 H Urine Mucus Many A Ethyl Alcohol 0.046 H 09/15/17 09/15/17 09/15/17 18:38 18:38 18:38 RBC Hgb Hct MCV MCH RDW Plt Count Gran % Lymph % (Auto) [place] % (Auto) Lymph # (Auto) [place] # (Auto) PT 23.0 H INR 2.0 H D-Dimer VBG Lactic Acid 9.8 H* Potassium 2.6 L* Chloride 90 L Carbon Dioxide 21 L Anion Gap 25.0 H Glucose Calcium 8.0 L Phosphorus Magnesium Total Bilirubin 9.6 H Direct Bilirubin AST 67 H Ammonia Lactate Dehydrogenase NT-Pro-B Natriuret Pep Albumin 3.0 L Globulin 5.1 H Albumin/Globulin Ratio 0.6 L Urine Protein Urine Glucose (UA) Urine Occult Blood Urine Bilirubin Urine Ictotest Urine Urobilinogen Urine RBC Urine WBC Urine Bacteria Hyaline Casts Urine Mucus Ethyl Alcohol 09/15/17 18:38 RBC 2.73 L Hgb 10.8 L Hct 31.1 L MCV 113.9 H MCH 39.5 H RDW 16.4 H Plt Count 129 L Gran % Lymph % (Auto) [place] % (Auto) 18.2 H Lymph # (Auto) [place] # (Auto) 1.4 H PT INR D-Dimer VBG Lactic Acid Potassium Chloride Carbon Dioxide Anion Gap Glucose Calcium Phosphorus Magnesium Total Bilirubin Direct Bilirubin AST Ammonia Lactate Dehydrogenase NT-Pro-B Natriuret Pep Albumin Globulin Albumin/Globulin Ratio Urine Protein Urine Glucose (UA) Urine Occult Blood Urine Bilirubin Urine Ictotest Urine Urobilinogen Urine RBC Urine WBC Urine Bacteria Hyaline Casts Urine Mucus Ethyl Alcohol September 18: Chest x-ray: There is a large consolidating infiltrate in the left lower lobe and small infiltrate behind the right heart border (worsening since yesterday). The infiltrates have remained stable since 8:01 AM on the same date. IMPRESSION : No complication following PICC line placement. September 17: Echocardiogram: Normal left ventricle. Ejection fraction 65-70% mildly dilated left and right atria. Mild to moderate posterior mitral annular calcification. ABG on BiPAP, 10/5, FiO2 60%: PH 7.38, PCO2 59, PO2 107, bicarb 34, O2 saturation 98% September 16: (Around midnight): ABG on 5 L oxygen mask: PH 7.38, PCO2 56, PO2 47, bicarb 33, 82% saturated Peritoneal fluid: PH 7.63. CBC shows 2% neutrophils, 44 lymphocytes, 46 mesothelial cells. Protein is 1.7. Albumin 0.7. Culture negative. September 15: Pro time is 23 with INR of 2.0 CBC: White blood cell count is 7900, hemoglobin 10.8, hematocrit 31, platelets 129,000. Absolute monocyte count is 1400. Chemistry panel: Show sodium 136, potassium 2.6, chloride 90, CO2 21, anion gap 25, BUN 8, creatinine 1.0 Calcium 8.0, total bilirubin 9.6, AST 67, ALT 21, alk phos 115, albumin 3.0, globulin 5.1 Ammonia 232 Lactic acid is elevated at 9.8 Urinalysis: Urine bilirubin is 4.0, ictotest is positive, urobilinogen is 4.0, few urine bacteria. 127 hyaline casts. Alcohol level is elevated at 0.046 Chest x-ray: Moderate left lower lobe consolidation. Possible left-sided pleural effusion. Mild compression fractures of the endplate of T12, old. Mild cardiomegaly. Head CT done at [facility] in May 2017 showed no acute process. Abdominal and pelvic CT showed cirrhosis of the liver with portal venous hypertension, pancreatitis, distended gallbladder, L1 and L3 superior endplate compression changes and L3 compression fracture, evidence of right renal atrophy Ultrasound showed distended gallbladder with sludge MRCP showed significantly distended gallbladder with some sludge of the neck but no biliary duct dilation. Labs on admission in May showed platelet count of 88,000, sodium 132, potassium 2.4, total bilirubin of 10 AST 91, alcohol blood level of less than 0.01. Meds: Medications Acetaminophen (Tylenol) 650 mg PO Q6HP PRN PRN Reason: PAIN/FEVER > 101 Albuterol Sulfate (Ventolin) 2.5 mg NEB TID [facility] Last Admin: 09/18/17 08:18 Dose: 2.5 mg Atenolol (Tenormin) 25 mg PO HS [facility] Last Admin: 09/17/17 22:13 Dose: Not Given Atenolol (Tenormin) 50 mg PO QAM [facility] Last Admin: 09/18/17 09:09 Dose: Not Given Ceftriaxone Sodium (Rocephin) 2 gm IV Q24H [facility] Last Admin: 09/18/17 09:32 Dose: 2 gm Docusate Sodium (Colace) 100 mg PO BID PRN PRN Reason: Constipation Folic Acid (Folic Acid) 1 mg PO DAILY [facility] Last Admin: 09/18/17 09:09 Dose: 1 mg Heparin Sodium (Porcine) (Heparin Flush) 2 ml IV Q12 [facility] Clindamycin Phosphate 600 mg/ (Dextrose) 54 mls @ 100 mls/hr IV Q8H [facility] Last Admin: 09/18/17 14:00 Dose: 100 mls/hr Potassium Chloride/Dextrose/Sod Cl (Dextrose 5%-1/2ns W/40meq Kcl) 1,000 mls @ 125 mls/hr IV .Q8H [facility] Last Admin: 09/18/17 13:21 Dose: Not Given Vancomycin HCl 1,500 mg/ (Sodium Chloride) 500 mls @ 333.3 mls/hr IV Q12H [facility] Last Admin: 09/18/17 09:00 Dose: 333.3 mls/hr Iron Carb/Multivit/[place]/Folic Acid (Multivitamin W/Minerals) 1 tab PO DAILY [facility] Last Admin: 09/18/17 09:09 Dose: 1 tab Lactulose (Cephulac) 20 gm PO QID [facility] Last Admin: 09/18/17 13:20 Dose: Not Given Lorazepam (Ativan) 0 mg IV Q4HP PRN; Protocol PRN Reason: Alcohol Withdrawal Last Admin: 09/18/17 00:29 Dose: 2 mg Naloxone HCl (Narcan) 0.1 mg IV Q2MIN PRN PRN Reason: Opiate Reversal Ondansetron HCl (Zofran) 4 mg IV Q6HP PRN PRN Reason: Nausea And Vomiting Oxycodone HCl (Roxicodone) 5 mg PO Q4HP PRN PRN Reason: Pain Last Admin: 09/17/17 20:33 Dose: 5 mg Potassium Chloride (Kdur) 40 meq PO BIDCC [facility] Last Admin: 09/18/17 09:09 Dose: Not Given Prednisone (Prednisolone) 40 mg PO DAILY [facility] Last Admin: 09/18/17 09:09 Dose: 40 mg Sodium Chloride (Saline Flush) 10 ml IV Q8 [facility] Last Admin: 09/18/17 13:20 Dose: 10 ml Sodium Chloride (Saline Flush) 10 ml IV Q8 [facility] Last Admin: 09/18/17 13:21 Dose: 10 ml Sodium Chloride (Saline Flush) 10 ml IV Q12 [facility] Sodium Chloride (Saline Flush) 10 ml IV UD PRN PRN Reason: FLUSH Tamsulosin HCl (Flomax) 0.4 mg PO HS [facility] Last Admin: 09/17/17 20:33 Dose: 0.4 mg Thiamine HCl (Vitamin B1) 100 mg PO QDAY [facility] Last Admin: 09/18/17 09:32 Dose: 100 mg Vancomycin HCl (Vancomycin Per Pharmacy) 1 order IV UD [facility] Medical - PN: A/P - Time Spent With Patient Total time spent is greater than 50% in coordination of care (as documented) at patient's floor/unit and/or counseling patient: Greater than 35 minutes (1) Left lower lobe pneumonia Status: Acute Current Visit: Yes (2) Lactic acidosis Status: Acute Current Visit: Yes (3) Cirrhosis of liver Status: Chronic Current Visit: Yes (4) Hypokalemia Status: Acute Current Visit: No - Narrative A/P Narrative: #1. Infectious disease. Patient presents with apparent left lower lobe pneumonia, lactic acidosis, possible SBP, possible early sepsis. -Peritoneal fluid studies do not appear consistent with SBP at this time. -X-ray shows worsening pneumonia, now bilateral. The patient really has no cough, and has been quite lethargic, so is probably not adequately protecting his airway. Continue Rocephin and clindamycin and vancomycin. Blood urine and sputum cultures are pending. Ascitic fluid cultures are pending as well . #2. Pulmonary. Patient experienced apparent respiratory depression yesterday, likely due to administration of Ativan. He is now oxygenating well with the use of BiPAP. He may be still actively withdrawing from alcohol, but we are trying to use less Ativan, as he clearly has other issues. Ventilation is being supported with BiPAP as we are able. I would like to add chest percussion therapy for his pneumonia, but with his tendency towards bleeding I am a little reluctant. 3. GI. Patient presents with history of cirrhosis, relatively recent. Clinically has severe liver dysfunction. -Hepatitis, with a MADDRY discriminant function of 60. This was reviewed with Dr. Archuleta of , and he suggests we treat him with prednisolone 40 mg daily for 30 days, and then do a 16 day taper by 10 mg per day every 4 days. Serum to albumin gradient is suggestive of portal hypertension. -Overnight, the patient has continued to have mild hypotension, and poor urine output. He has not responded to IV fluids. Creatinine is trending up. I reviewed his case at length with Dr. Archuleta of this morning, and then contacted Dr. Becker of nephrology. She will try other avenues to improve urine output, perhaps albumin and octreotide. If renal function continues to decline, he will need transfer somewhere where he might have access to inpatient dialysis. There is concerned that he is developing hepatorenal syndrome, and that his risk of mortality is quite high. -He has been very inconsistent with ability to tolerate oral medications, so has periodically missed lactulose and prednisolone, etc. 4. History of alcohol abuse -Patient appeared to develop worsening symptoms of alcohol withdrawal last night. He was given Ativan per the [facility] protocol. He is still very restless, with significant confusion. 5. DVT prophylaxis: Patient is auto anticoagulated. 6. Neurologic. Failure to thrive. History of cerebellar degeneration. Patient apparently is no longer ambulatory , although he can stand for transfers normally. His mother reports that he just has trouble walking because his legs are so heavy with edema. She says [facility], but declined again after he returned home. -PT and OT . It appears patient is struggling at home, and may need placement. #7. Poor nutritional status. Dietary consult. 8. Cardiac. Chest x-ray shows cardiomegaly, but echocardiogram looks fairly normal. No signs of CHF. 9. . Is experiencing urinary retention. Continue Graves catheter for now. Added Flomax. 10. CODE STATUS: Full code. Patient believes his father would act as his POA. Approximately 45 minutes was spent so far today, reviewing test results, examining the patient, reviewing plan of care with staff, reviewing case with both GI and nephrology. Medical - PN: Qual - VTE Deep Vein Thrombosis/Pulmonary Embolism Present on Admission: No
[2017-09-18] MEDS ORDERED: ALBUMIN HUMAN 12.5 GM/50 ML BAG IV ONE (19:41)
--- NOTE | 2017-09-18 19:46 | Internal Med Progress Note ---
Medical - PN: Subj Patient information: Note initiated : 09/18/17 at 7:41 pm Service Date, if different from initiated Date: [] Patient: Esteban Almeida 56 y/o M admitted on 09/15/17 for Falls, Swollen Lower Legs/PNA, Cirrhosis of Liver. Chief Complaint: [EtOH cirrhosis and alcoholic hepatitis] Pt 's condition has worsened in past 24-48 hrs with hypotension, obtundation, evidence of right middle lobe and LLL pnia,and ominous oliguria and increase of Cr from 0.8 yesterday to 1.2 today. I spoke with hospitalist this a.m. and suggested nephrology consult. I have read Dr Becker's note. Pt is obtunded and provides no history at this time. - Constitutional Vitals: Vital Signs Temp Pulse Resp BP Pulse Ox 99.1 F H 67 17 93/66 94 09/18/17 16:01 09/18/17 15:37 09/18/17 16:01 09/18/17 16:01 09/18/17 16:01 Period Temp Pulse Resp BP Sys/López Pulse Ox Last 24 Hr 96.3 F-99.1 F 59-83 13-22 72-130/42-107 84-99 Intake and Output 09/18/17 09/18/17 09/18/17 05:59 13:59 21:59 Intake Total 207 / 207 1682 / 1682 1054 / 1054 Output Total 75 / 75 50 / 50 Balance 132 / 132 1682 / 1682 1004 / 1004 Intake & Output: Intake & Output 09/18/17 09/18/17 09/18/17 05:59 13:59 21:59 Intake Total 207 / 207 1682 / 1682 1054 / 1054 Output Total 75 / 75 50 / 50 Balance 132 / 132 1682 / 1682 1004 / 1004 Intake: IV 207 / 207 1562 / 1562 1054 / 1054 Cleocin 600 mg In Dextrose 5% 54 / 54 54 / 54 54 / 54 in Water 50 ml @ 100 mls/hr IV Q8H [facility] Rx#:[id number] Dextrose 5%-1/2Ns W/40Meq KCl 1 1000 / 1000 1000 / 1000 ,000 ml @ 125 mls/hr IV .Q8H [facility] Rx#:[id number] Vancomycin 1,500 mg In Sodium 500 / 500 Chloride 0.9% 500 ml @ 333.3 mls/hr IV Q12H [facility] Rx#: [id number] Oral 120 / 120 Output: Urine Catheter Amount 75 / 75 50 / 50 Other: Meal Breakfast Percent of Meal Consumed 25% General appearance: obese - Respiratory Respiratory exam: Absent: wheezes - GI/Abdominal GI/Abdominal exam: Present: soft. Absent: distended, tenderness - Neurological Exam Neurological exam: Present: altered. Absent: alert Medical - PN: Obj Da - Labs CBC & Chem 7: 09/18/17 03:54 09/18/17 03:54 Labs: Abnormal Lab Results 09/18/17 09/18/17 09/18/17 14:24 03:54 03:54 RBC 2.06 L Hgb 8.1 L Hct 23.4 L MCV 113.8 H MCH 39.4 H RDW 17.2 H Plt Count 70 L Gran % 79.6 H Lymph % (Auto) 8.7 L Tompkins % (Auto) Lymph # (Auto) 0.5 L Tompkins # (Auto) PT INR D-Dimer VBG Lactic Acid Potassium Chloride Glucose 159 H Calcium 7.5 L Phosphorus 4.8 H Magnesium Total Bilirubin 7.5 H Direct Bilirubin 4.4 H AST 60 H Ammonia Lactate Dehydrogenase 272 H NT-Pro-B Natriuret Pep Albumin 2.7 L Globulin Albumin/Globulin Ratio 0.8 L Urine Protein 100 A Urine Glucose (UA) 50 A Urine Occult Blood >=1.0 A Urine Bilirubin Urine Ictotest Urine Urobilinogen 4.0 A Urine RBC > 182 H Urine WBC 6 H Urine Bacteria Hyaline Casts 32 H Urine Mucus Many A Ethyl Alcohol 09/17/17 09/17/17 09/17/17 04:15 04:15 01:35 RBC 2.32 L Hgb 9.1 L Hct 26.4 L MCV 113.8 H MCH 39.2 H RDW 16.8 H Plt Count 77 L Gran % Lymph % (Auto) 15.4 L Tompkins % (Auto) 15.0 H Lymph # (Auto) 1.4 L Tompkins # (Auto) 1.3 H PT INR D-Dimer VBG Lactic Acid Potassium Chloride 94 L 95 L Glucose 129 H 117 H Calcium 7.7 L 7.8 L Phosphorus Magnesium Total Bilirubin 9.3 H 9.8 H Direct Bilirubin 4.4 H 4.6 H AST 56 H 59 H Ammonia Lactate Dehydrogenase 329 H 338 H NT-Pro-B Natriuret Pep 1447.0 H Albumin 2.9 L Globulin 3.8 H 3.8 H Albumin/Globulin Ratio 0.8 L 0.8 L Urine Protein Urine Glucose (UA) Urine Occult Blood Urine Bilirubin Urine Ictotest Urine Urobilinogen Urine RBC Urine WBC Urine Bacteria Hyaline Casts Urine Mucus Ethyl Alcohol 09/17/17 09/17/17 09/16/17 01:35 01:35 04:22 RBC 2.31 L Hgb 8.9 L Hct 26.1 L MCV 112.9 H MCH 38.5 H RDW 16.8 H Plt Count 85 L Gran % Lymph % (Auto) 9.7 L Tompkins % (Auto) 15.2 H Lymph # (Auto) 0.9 L Tompkins # (Auto) 1.4 H PT INR D-Dimer 12.27 H VBG Lactic Acid 3.4 H Potassium Chloride Glucose Calcium Phosphorus Magnesium Total Bilirubin Direct Bilirubin AST Ammonia Lactate Dehydrogenase NT-Pro-B Natriuret Pep Albumin Globulin Albumin/Globulin Ratio Urine Protein Urine Glucose (UA) Urine Occult Blood Urine Bilirubin Urine Ictotest Urine Urobilinogen Urine RBC Urine WBC Urine Bacteria Hyaline Casts Urine Mucus Ethyl Alcohol 09/16/17 09/16/17 09/16/17 04:22 04:22 04:22 RBC 2.28 L Hgb 8.8 L Hct 25.6 L MCV 112.4 H MCH 38.5 H RDW 17.1 H Plt Count 84 L Gran % Lymph % (Auto) Tompkins % (Auto) 20.7 H Lymph # (Auto) 1.1 L Tompkins # (Auto) 1.1 H PT INR D-Dimer VBG Lactic Acid Potassium 2.4 L* Chloride 95 L Glucose 117 H Calcium 7.2 L Phosphorus Magnesium 1.0 L Total Bilirubin 7.8 H Direct Bilirubin 4.2 H AST 51 H Ammonia 105 H Lactate Dehydrogenase 269 H NT-Pro-B Natriuret Pep Albumin 2.4 L Globulin 3.9 H Albumin/Globulin Ratio 0.6 L Urine Protein Urine Glucose (UA) Urine Occult Blood Urine Bilirubin Urine Ictotest Urine Urobilinogen Urine RBC Urine WBC Urine Bacteria Hyaline Casts Urine Mucus Ethyl Alcohol 09/15/17 09/15/17 09/15/17 20:10 18:38 18:38 RBC Hgb Hct MCV MCH RDW Plt Count Gran % Lymph % (Auto) Tompkins % (Auto) Lymph # (Auto) Tompkins # (Auto) PT 23.0 H INR 2.0 H D-Dimer VBG Lactic Acid Potassium Chloride Glucose Calcium Phosphorus Magnesium Total Bilirubin Direct Bilirubin AST Ammonia Lactate Dehydrogenase NT-Pro-B Natriuret Pep Albumin Globulin Albumin/Globulin Ratio Urine Protein Urine Glucose (UA) Urine Occult Blood Urine Bilirubin 4.0 A Urine Ictotest Pos A Urine Urobilinogen 4.0 A Urine RBC Urine WBC Urine Bacteria Few A Hyaline Casts 127 H Urine Mucus Many A Ethyl Alcohol 0.046 H 09/15/17 18:38 RBC 2.73 L Hgb 10.8 L Hct 31.1 L MCV 113.9 H MCH 39.5 H RDW 16.4 H Plt Count 129 L Gran % Lymph % (Auto) Tompkins % (Auto) 18.2 H Lymph # (Auto) Tompkins # (Auto) 1.4 H PT INR D-Dimer VBG Lactic Acid Potassium Chloride Glucose Calcium Phosphorus Magnesium Total Bilirubin Direct Bilirubin AST Ammonia Lactate Dehydrogenase NT-Pro-B Natriuret Pep Albumin Globulin Albumin/Globulin Ratio Urine Protein Urine Glucose (UA) Urine Occult Blood Urine Bilirubin Urine Ictotest Urine Urobilinogen Urine RBC Urine WBC Urine Bacteria Hyaline Casts Urine Mucus Ethyl Alcohol Meds: Medications Acetaminophen (Tylenol) 650 mg PO Q6HP PRN PRN Reason: PAIN/FEVER > 101 Albuterol Sulfate (Ventolin) 2.5 mg NEB TID [facility] Last Admin: 09/18/17 15:36 Dose: 2.5 mg Atenolol (Tenormin) 25 mg PO HS [facility] Last Admin: 09/17/17 22:13 Dose: Not Given Atenolol (Tenormin) 50 mg PO QAM [facility] Last Admin: 09/18/17 09:09 Dose: Not Given Ceftriaxone Sodium (Rocephin) 2 gm IV Q24H [facility] Last Admin: 09/18/17 09:32 Dose: 2 gm Docusate Sodium (Colace) 100 mg PO BID PRN PRN Reason: Constipation Folic Acid (Folic Acid) 1 mg PO DAILY [facility] Last Admin: 09/18/17 09:09 Dose: 1 mg Heparin Sodium (Porcine) (Heparin Flush) 2 ml IV Q12 [facility] Clindamycin Phosphate 600 mg/ (Dextrose) 54 mls @ 100 mls/hr IV Q8H [facility] Last Infusion: 09/18/17 15:00 Dose: Infused Vancomycin HCl 1,500 mg/ (Sodium Chloride) 500 mls @ 333.3 mls/hr IV Q12H [facility] Last Infusion: 09/18/17 11:00 Dose: Infused Iron Carb/Multivit/[employer] Technician/Folic Acid (Multivitamin W/Minerals) 1 tab PO DAILY [facility] Last Admin: 09/18/17 09:09 Dose: 1 tab Lactulose (Cephulac) 20 gm PO QID [facility] Last Admin: 09/18/17 16:29 Dose: Not Given Lorazepam (Ativan) 0 mg IV Q4HP PRN; Protocol PRN Reason: Alcohol Withdrawal Last Admin: 09/18/17 00:29 Dose: 2 mg Naloxone HCl (Narcan) 0.1 mg IV Q2MIN PRN PRN Reason: Opiate Reversal Ondansetron HCl (Zofran) 4 mg IV Q6HP PRN PRN Reason: Nausea And Vomiting Oxycodone HCl (Roxicodone) 5 mg PO Q4HP PRN PRN Reason: Pain Last Admin: 09/17/17 20:33 Dose: 5 mg Potassium Chloride (Kdur) 40 meq PO BIDCC [facility] Last Admin: 09/18/17 16:03 Dose: Not Given Prednisone (Prednisolone) 40 mg PO DAILY [facility] Last Admin: 09/18/17 09:09 Dose: 40 mg Sodium Chloride (Saline Flush) 10 ml IV Q8 [facility] Last Admin: 09/18/17 13:20 Dose: 10 ml Sodium Chloride (Saline Flush) 10 ml IV Q8 [facility] Last Admin: 09/18/17 13:21 Dose: 10 ml Sodium Chloride (Saline Flush) 10 ml IV Q12 [facility] Sodium Chloride (Saline Flush) 10 ml IV UD PRN PRN Reason: FLUSH Tamsulosin HCl (Flomax) 0.4 mg PO HS [facility] Last Admin: 09/17/17 20:33 Dose: 0.4 mg Thiamine HCl (Vitamin B1) 100 mg PO QDAY [facility] Last Admin: 09/18/17 09:32 Dose: 100 mg Vancomycin HCl (Vancomycin Per Pharmacy) 1 order IV UD [facility] Medical - PN: A/P - Time Spent With Patient Total time spent is greater than 50% in coordination of care (as documented) at patient's floor/unit and/or counseling patient: (1) Cirrhosis of liver Problem details: the hypotension despite volume infusion, the avid sodium retention by kidneys, the rising Cr , and the oliguria in the setting of cirrhosis, alcoholic hepatitis ,and pneumonia would suggest hepatorenal syndrome. Appreciate Dr Becker's consult and agree with octreotide/IV albumin trial. I also agree that pt's prognosis is grim or at least markedly guarded. Status: Chronic Current Visit: Yes (2) Acute renal failure (ARF) Status: Acute Current Visit: Yes Medical - PN: Qual - VTE Deep Vein Thrombosis/Pulmonary Embolism Present on Admission: No
[2017-09-18] MEDS ORDERED: OCTREOTIDE ACETATE 100 MCG/ML VIAL IV ONE (21:00)
[2017-09-18] MEDS: TAMSULOSIN 0.4 MG CAPSULE PO SCH (21:06)
[2017-09-18] MEDS: OCTREOTIDE ACETATE 1,000 MCG/ML VIAL IV SCH (21:17)
[2017-09-19] MEDS: LORazepam 2 MG/ML VIAL IV PRN ×2 (01:03→04:00)
[2017-09-19 04:38] LABS: Basophils # (Auto) 0 K/mcL (0.0-0.3); Basophils % (Auto) 0.1 % (0.0-2.0); Eosinophils # (Auto) 0 K/mcL (0.0-0.7); Eosinophils % (Auto) 0 % (0.0-7.0); Granulocytes % (Auto) 77.9 % (38.0-78.0); Lymphocytes # (Auto) 0.8 K/mcL (1.5-4.8); Lymphocytes % (Auto) 9.3 % (15.5-49.0); Mean Cell Volume 114.7 fL (80.0-100.0); Mean Corpuscular HGB Conc 33.9 g/dL (31.0-36.0); Mean Corpuscular Hemoglobin 38.8 pg (26.0-34.0); Monocytes % (Auto) 12.7 % (1.0-12.0); Platelet Count 84 K/mcL (140-440); RBC 2.08 M/mcL (4.50-5.90); Red Cell Distribution Width 17.5 % (11.5-14.5)
[2017-09-19 04:59] LABS: ALT/SGPT 20 U/l (0-40); Albumin/Globulin Ratio 0.8 (1.0-2.3); Alkaline Phosphatase 73 U/L (39-117); Bilirubin,Direct 3.9 mg/dL (0.0-0.3); Blood Urea Nitrogen 17 mg/dl (6-20); Gamma Glutamyl Transpeptidase 54 U/L (8-61); Magnesium 1.7 mg/dL (1.6-2.5)
[2017-09-19] MEDS: CLINDAMYCIN 600 MG in DEXTROSE 5% IN WATER 50 ML IV SCH ×3 (05:36→22:08)
[2017-09-19] MEDS: 0.9 % SODIUM CHLORIDE 10 ML SYRINGE IV SCH ×8 (05:37→21:13)
[2017-09-19] MEDS: POTASSIUM CHLORIDE 20 MEQ TABLET PO SCH ×2 (08:13→15:43)
--- NOTE | 2017-09-19 08:43 | Ultrasound Report ---
History: Acute renal failure Findings: The right kidney is atrophic and measures 4.2 x 5.0 x 8.3 cm. There are focal areas of cortical scarring. There is lobulation of the cortex creating the appearance of a pseudomass in the lower pole. This is a chronic stable finding. A CT scan done in 2013 showed normal renal tissue in this area and the appearance has remained stable since an ultrasound done in 2011. Left kidney measures 5.6 x 6.3 x 12.4 cm. Cortex is normal in thickness and echogenicity. There is no evidence of mass in the left kidney. No cyst, calculus or hydronephrosis are present in either kidney. Doppler shows normal blood flow to both kidneys. The urinary bladder is decompressed by Graves catheter. We are unable to document flow of urine through either ureter into the bladder. A moderate amount of ascites is present in the pelvis. Impression: Chronic stable atrophy of the right kidney. No acute abnormality is present. Interpreted and Authenticated by: Esteban Soto 09/19/17
[2017-09-19] MEDS ORDERED: OCTREOTIDE ACETATE 100 MCG/ML VIAL IV ONE ×3 (09:00→21:00)
[2017-09-19] MEDS: ALBUTEROL SULFATE 2.5 MG/3 ML NEBULIZER NEB SCH ×3 (09:16→21:06)
[2017-09-19] MEDS: ATENOLOL 50 MG TABLET PO SCH (10:08)
[2017-09-19] MEDS: LACTULOSE 20 GM/30 ML ORAL.SOL PO SCH ×4 (10:19→20:11)
[2017-09-19] MEDS: MULTIVIT,THER IRON,CA,FA & MIN 1 TABLET PO SCH (10:19)
[2017-09-19] MEDS: cefTRIAXone 2 GM VIAL IV SCH (10:19)
[2017-09-19] MEDS: FOLIC ACID 1 MG TABLET PO SCH (10:19)
[2017-09-19] MEDS: THIAMINE 100 MG TABLET PO SCH (10:20)
[2017-09-19] MEDS: prednisoLONE 15 MG/5 ML ORAL SOL PO SCH (10:20)
[2017-09-19] MEDS: OCTREOTIDE ACETATE 1,000 MCG/ML VIAL IV SCH ×3 (10:20→21:13)
[2017-09-19] MEDS: VANCOMYCIN 1,500 MG in 0.9 % SODIUM CHLORIDE 500 ML IV SCH (10:22)
[2017-09-19] MEDS ORDERED: ALBUMIN HUMAN 25 GM/100 ML BAG IV ONE (12:45)
--- NOTE | 2017-09-19 13:01 | Internal Med Progress Note ---
Medical - PN: Subj Patient information: Note initiated : 09/19/17 at 1:01 pm Service Date, if different from initiated Date: [] Patient: Esteban Almeida 56 y/o M admitted on 09/15/17 for Falls, Swollen Lower Legs/PNA, Cirrhosis of Liver. Chief Complaint: [] Interval history: September 15, 2017: History of present illness: Mr. Almeida is a 56 year old man who was recently diagnosed with liver cirrhosis, is brought in by his family with complaint of increased falls, lower extremity edema, jaundice, shortness of breath. Unfortunately, the family had already gone home by the time the patient arrived on the floor. Patient appears to be an unreliable historian. He reports that his legs have been swelling for the last 3 weeks, and that he fell down today and could not get up because his legs are so heavy. He really cannot recall any other symptoms. He denies fever chills, headaches or dizziness, new eye or ear symptoms, sore throat or cough, chest pain or palpitations, shortness of breath or wheezing, abdominal pain, nausea or vomiting, diarrhea. He does report mild constipation. He does report some difficulty urinating. Records obtained from [facility] show that he was admitted there in May 2017 with jaundice secondary to alcoholic hepatitis, liver cirrhosis secondary to alcohol, cerebellar ataxia, hypokalemia, L3 compression fracture, chronic anemia and thrombocytopenia, alcohol abuse. I spoke with Dr. Archuleta this evening, as he had seen the patient at [facility]. He had hoped the patient had quit drinking alcohol, but apparently the patient did not once he got out of rehab. ER evaluation shows weighted ammonia level, elevated lactic acid level, hypokalemia, markedly elevated bilirubin of 9.6, elevated pro time, and chest x- ray suggests left lower lobe pneumonia with possible effusion. September 16: -Today, the patient continues to deny that he is having problems. He is wondering when he can go home. Last evening, he was unable to empty his bladder , and had a greater than 700 mL postvoid residual, so Graves catheter was placed. He admits he has been having trouble emptying his bladder at home. -He was seen by physical therapy today. He is still too weak to really assist much with transfers, so they are working on that. -He denies significant pain, fever or chills, chest pain or shortness of breath or cough, abdominal pain, nausea or vomiting or diarrhea. His history appears quite unreliable. -Radiology was able to remove approximately 3 L of fluid via paracentesis today. -His father was in the room when I stop by this evening, and I explained that he was having further decompensation of his liver function, and due to ongoing alcohol use. The father, who lives with the patient, says he did not realize the patient was still drinking. Nursing staff tells me that the patient's parents feel that because of worsening weakness they are concerned that they will not be able to handle him at home any longer. September 17: The patient had a very rough evening. In the evening he started to have increased agitation. He was given Ativan per the [facility] protocol. He subsequently had continued agitation, and then started to have trouble maintaining his O2 saturations. He was initially treated for possible volume overload with IV Lasix, but did not seem to respond. His breathing became more labored, and he eventually required oral airway and administration of BiPAP. ABG showed hypercarbia and hypoxia, consistent with hypoventilation. Chest x- ray showed continued left lower lobe infiltrate and possible left pleural effusion. He has had borderline hypotension, but is maintaining mean arterial pressures above 65. Bilirubin had dropped after initiating steroids, but bumped up again today. His nurse notes this morning that he has been too somnolent to take oral meds. The patient remains quite somnolent and confused. He is unable to give any history. His family seems to be surprised by his liver failure, even though this is an ongoing issue. His mother is requesting a international controller come in to administer last rights. She understands that he is not necessarily preterminal , but she also understands that he will likely from liver cirrhosis related complications. September 18: -The patient again had a very difficult night. He again had agitation last night which did not respond very well to Ativan. We then gave him 1 dose of morphine, which seemed to help him relax. He does require BiPAP to maintain his oxygen saturations most of the time, although he has come off the BiPAP this morning. -He was mostly obtunded yesterday, but is more awake this morning he says he is feeling okay. He continues to deny fever or chills, cough or shortness of breath. His chest x-ray shows worsening pneumonia. -I reviewed his case in detail with Dr. Archuleta of GI this morning. The patient's blood pressures have been running low, and urine output is minimal. He has not responded to either fluid challenge or diuretics. We also have not been able to get any nutrition into him because of his obtunded state. Dr. Archuleta is very concerned that the patient is developing hepatorenal syndrome, and that his risk of mortality is increasingly high. I reviewed his case briefly with Dr. Becker from nephrology. She is now consulting, and will consider whether to try albumin and Lasix to improve urine output, or vasopressors. If that ends up being unsuccessful, then she would recommend that we transfer the patient to a larger center where he would have access to a full range of specialist. -I spent quite a while last evening reviewing the patient's status and test results with his sister, who is also a physician. -Otherwise, this morning, the patient continues fairly confused. He continues to deny any pain, chest pain or palpitations, shortness of breath, abdominal pain, nausea or vomiting or diarrhea, but his history is quite unreliable. The nurses can occasionally get a few tablespoons of something and then by mouth, but he is in general not alert enough to take in very much. September 19: -Patient continues to have encephalopathy and mild agitation in the evenings. He did receive both Ativan and morphine last night. The morphine seemed to settle him down more, so we are thinking perhaps he was having pain. His family notes he does have known chronic back pain. He has not really been able to express this to us verbally, at least not consistently -The patient continues to have extremely low urine output. He was treated by Dr. Becker last night with albumin and octreotide, without much in the way of results. He has now developed hepatorenal syndrome. He is at very high risk for further complications, and further decline in renal function. This may require acute dialysis. The patient has been told this, but it is not very clear what he understands. His parents and sister are well aware of his condition, but do not want him transferred out of the [place]. They refused transfer to a larger tertiary care center in [place]. -He continues to have very weak cough and altered mental status, so has not really been able to come cooperate well with pulmonary toilet. He continues on antibiotics for pneumonia, which does not seem to be clearing. He became more hypoxic again this evening, so is now back on BiPAP. -He remains quite obtunded today, but will arouse a little bit to loud voice and touch. He intermittently admits to pain, but generally not. He seems to deny fever or chills, cough, shortness of breath, chest pain, GI or symptoms. - Constitutional Vitals: Vital Signs Temp Pulse Resp BP Pulse Ox 97.4 F 69 20 93/52 95 09/18/17 20:01 09/19/17 09:32 09/19/17 09:32 09/19/17 04:03 09/19/17 09:32 Period Temp Pulse Resp BP Sys/López Pulse Ox Last 24 Hr 97.4 F-99.1 F 67-72 13-20 76-110/40-82 83-98 Intake and Output 09/18/17 09/19/17 09/19/17 21:59 05:59 13:59 Intake Total 1054 / 1054 554 / 554 54 / 54 Output Total 50 / 50 100 / 100 Balance 1004 / 1004 454 / 454 54 / 54 Weight 258 lb 3.2 oz Intake & Output: Intake & Output 09/18/17 09/19/17 09/19/17 21:59 05:59 13:59 Intake Total 1054 / 1054 554 / 554 54 / 54 Output Total 50 / 50 100 / 100 Balance 1004 / 1004 454 / 454 54 / 54 Weight 258 lb 3.2 oz Intake: IV 1054 / 1054 554 / 554 54 / 54 Cleocin 600 mg In Dextrose 5% 54 / 54 54 / 54 54 / 54 in Water 50 ml @ 100 mls/hr IV Q8H [facility] Rx#:[id number] Dextrose 5%-1/2Ns W/40Meq KCl 1 1000 / 1000 ,000 ml @ 125 mls/hr IV .Q8H [facility] Rx#:[id number] Vancomycin 1,500 mg In Sodium 500 / 500 Chloride 0.9% 500 ml @ 333.3 mls/hr IV Q12H [facility] Rx#: [id number] Output: Urine Catheter Amount 50 / 50 100 / 100 On exam, he is mostly obtunded. He is difficult to arouse, and does not seem to fully comprehend questions or be able to express answers adequately. Neck shows no obvious JVD or lymphadenopathy. Cardiac exam shows regular rate and rhythm. Lungs: Have a scattered crackles, and generally decreased breath sounds. He is not really able to fully cooperate with deep breathing. Abdomen is soft, without obvious tenderness. Extremities: Continue to show severe pitting edema up to the abdomen. Neurologic exam: Patient is lethargic and can only intermittently follow commands. At times, he is very restless and tries to pull on lines and rolls around in bed quite a bit. Ativan helps minimally. Morphine seems to help a bit more, but Dr. Becker is concerned about his ability to clear morphine given his acute renal failure. Medical - PN: Obj Da - Labs CBC & Chem 7: 09/19/17 03:51 09/19/17 03:51 Labs: Abnormal Lab Results 09/19/17 09/19/17 09/19/17 07:59 03:51 03:51 RBC 2.08 L Hgb 8.1 L Hct 23.8 L MCV 114.7 H MCH 38.8 H RDW 17.5 H Plt Count 84 L Gran % Lymph % (Auto) 9.3 L Mccreary % (Auto) 12.7 H Lymph # (Auto) 0.8 L Mccreary # (Auto) 1.0 H D-Dimer Chloride 95 L Anion Gap 17.0 H Creatinine 2.0 H Glucose 136 H Calcium 7.9 L Phosphorus 5.5 H Total Bilirubin 6.8 H Direct Bilirubin 3.9 H AST 58 H Lactate Dehydrogenase 287 H NT-Pro-B Natriuret Pep Albumin 3.0 L Globulin Albumin/Globulin Ratio 0.8 L Urine Protein Urine Glucose (UA) Urine Occult Blood Urine Urobilinogen Urine RBC Urine WBC Hyaline Casts Urine Mucus Vancomycin Trough 23.0 H* 09/18/17 09/18/17 09/18/17 14:24 03:54 03:54 RBC 2.06 L Hgb 8.1 L Hct 23.4 L MCV 113.8 H MCH 39.4 H RDW 17.2 H Plt Count 70 L Gran % 79.6 H Lymph % (Auto) 8.7 L Mccreary % (Auto) Lymph # (Auto) 0.5 L Mccreary # (Auto) D-Dimer Chloride Anion Gap Creatinine Glucose 159 H Calcium 7.5 L Phosphorus 4.8 H Total Bilirubin 7.5 H Direct Bilirubin 4.4 H AST 60 H Lactate Dehydrogenase 272 H NT-Pro-B Natriuret Pep Albumin 2.7 L Globulin Albumin/Globulin Ratio 0.8 L Urine Protein 100 A Urine Glucose (UA) 50 A Urine Occult Blood >=1.0 A Urine Urobilinogen 4.0 A Urine RBC > 182 H Urine WBC 6 H Hyaline Casts 32 H Urine Mucus Many A Vancomycin Trough 09/17/17 09/17/17 09/17/17 04:15 04:15 01:35 RBC 2.32 L Hgb 9.1 L Hct 26.4 L MCV 113.8 H MCH 39.2 H RDW 16.8 H Plt Count 77 L Gran % Lymph % (Auto) 15.4 L Mccreary % (Auto) 15.0 H Lymph # (Auto) 1.4 L Mccreary # (Auto) 1.3 H D-Dimer Chloride 94 L 95 L Anion Gap Creatinine Glucose 129 H 117 H Calcium 7.7 L 7.8 L Phosphorus Total Bilirubin 9.3 H 9.8 H Direct Bilirubin 4.4 H 4.6 H AST 56 H 59 H Lactate Dehydrogenase 329 H 338 H NT-Pro-B Natriuret Pep 1447.0 H Albumin 2.9 L Globulin 3.8 H 3.8 H Albumin/Globulin Ratio 0.8 L 0.8 L Urine Protein Urine Glucose (UA) Urine Occult Blood Urine Urobilinogen Urine RBC Urine WBC Hyaline Casts Urine Mucus Vancomycin Trough 09/17/17 09/17/17 01:35 01:35 RBC 2.31 L Hgb 8.9 L Hct 26.1 L MCV 112.9 H MCH 38.5 H RDW 16.8 H Plt Count 85 L Gran % Lymph % (Auto) 9.7 L Mccreary % (Auto) 15.2 H Lymph # (Auto) 0.9 L Mccreary # (Auto) 1.4 H D-Dimer 12.27 H Chloride Anion Gap Creatinine Glucose Calcium Phosphorus Total Bilirubin Direct Bilirubin AST Lactate Dehydrogenase NT-Pro-B Natriuret Pep Albumin Globulin Albumin/Globulin Ratio Urine Protein Urine Glucose (UA) Urine Occult Blood Urine Urobilinogen Urine RBC Urine WBC Hyaline Casts Urine Mucus Vancomycin Trough September 19: CBC: White blood cell count 8000, hemoglobin 8, hematocrit 23.8, platelets 84, 000. Chemistry panel: Sodium 135, potassium 4.6, chloride 95, CO2 23, anion gap 17, BUN 17, creatinine 2.0, glucose 136 Calcium 7.9, phosphorus 5.5, total bilirubin 6.8, direct bilirubin 3.9, AST 58, LDH 287 September 18: Chest x-ray: There is a large consolidating infiltrate in the left lower lobe and small infiltrate behind the right heart border (worsening since yesterday). The infiltrates have remained stable since 8:01 AM on the same date. IMPRESSION : No complication following PICC line placement. Urine culture: Shows no growth so far. September 17: Echocardiogram: Normal left ventricle. Ejection fraction 65-70% mildly dilated left and right atria. Mild to moderate posterior mitral annular calcification. ABG on BiPAP, 10/5, FiO2 60%: PH 7.38, PCO2 59, PO2 107, bicarb 34, O2 saturation 98% September 16: (Around midnight): ABG on 5 L oxygen mask: PH 7.38, PCO2 56, PO2 47, bicarb 33, 82% saturated Peritoneal fluid: PH 7.63. CBC shows 2% neutrophils, 44 lymphocytes, 46 mesothelial cells. Protein is 1.7. Albumin 0.7. Culture negative. September 15: Pro time is 23 with INR of 2.0 CBC: White blood cell count is 7900, hemoglobin 10.8, hematocrit 31, platelets 129,000. Absolute monocyte count is 1400. Chemistry panel: Show sodium 136, potassium 2.6, chloride 90, CO2 21, anion gap 25, BUN 8, creatinine 1.0 Calcium 8.0, total bilirubin 9.6, AST 67, ALT 21, alk phos 115, albumin 3.0, globulin 5.1 Ammonia 232 Lactic acid is elevated at 9.8 Urinalysis: Urine bilirubin is 4.0, ictotest is positive, urobilinogen is 4.0, few urine bacteria. 127 hyaline casts. Alcohol level is elevated at 0.046 Chest x-ray: Moderate left lower lobe consolidation. Possible left-sided pleural effusion. Mild compression fractures of the endplate of T12, old. Mild cardiomegaly. Head CT done at [facility] in May 2017 showed no acute process. Abdominal and pelvic CT showed cirrhosis of the liver with portal venous hypertension, pancreatitis, distended gallbladder, L1 and L3 superior endplate compression changes and L3 compression fracture, evidence of right renal atrophy Ultrasound showed distended gallbladder with sludge MRCP showed significantly distended gallbladder with some sludge of the neck but no biliary duct dilation. Labs on admission in May showed platelet count of 88,000, sodium 132, potassium 2.4, total bilirubin of 10 AST 91, alcohol blood level of less than 0.01. Meds: Medications Acetaminophen (Tylenol) 650 mg PO Q6HP PRN PRN Reason: PAIN/FEVER > 101 Albuterol Sulfate (Ventolin) 2.5 mg NEB TID [facility] Last Admin: 09/19/17 09:16 Dose: 2.5 mg Atenolol (Tenormin) 50 mg PO QAM [facility] Last Admin: 09/19/17 10:08 Dose: Not Given Ceftriaxone Sodium (Rocephin) 2 gm IV Q24H [facility] Last Admin: 09/19/17 10:19 Dose: 2 gm Docusate Sodium (Colace) 100 mg PO BID PRN PRN Reason: Constipation Folic Acid (Folic Acid) 1 mg PO DAILY [facility] Last Admin: 09/19/17 10:19 Dose: 1 mg Heparin Sodium (Porcine) (Heparin Flush) 2 ml IV Q12 [facility] Last Admin: 09/19/17 10:20 Dose: Not Given Clindamycin Phosphate 600 mg/ (Dextrose) 54 mls @ 100 mls/hr IV Q8H [facility] Last Infusion: 09/19/17 06:45 Dose: Infused Albumin Human (Buminate) 25 gm in 100 mls @ 200 mls/hr IV BID [facility] Albumin Human (Buminate) 25 gm in 100 mls @ 200 mls/hr IV ONCE ONE Stop: 09/19/17 13:14 Iron Carb/Multivit/Transit Clerk/Folic Acid (Multivitamin W/Minerals) 1 tab PO DAILY [facility] Last Admin: 09/19/17 10:19 Dose: 1 tab Lactulose (Cephulac) 20 gm PO QID [facility] Last Admin: 09/19/17 10:19 Dose: 20 gm Lorazepam (Ativan) 0 mg IV Q4HP PRN; Protocol PRN Reason: Alcohol Withdrawal Last Admin: 09/19/17 04:00 Dose: 2 mg Morphine Sulfate (Morphine) 2 mg IV Q2HP PRN PRN Reason: PAIN LEVEL > 6 Last Admin: 09/19/17 10:19 Dose: 2 mg Naloxone HCl (Narcan) 0.1 mg IV Q2MIN PRN PRN Reason: Opiate Reversal Octreotide Acetate (Sandostatin) 100 mcg IV TID [facility] Last Admin: 09/19/17 10:20 Dose: 100 mcg Ondansetron HCl (Zofran) 4 mg IV Q6HP PRN PRN Reason: Nausea And Vomiting Oxycodone HCl (Roxicodone) 5 mg PO Q4HP PRN PRN Reason: Pain Last Admin: 09/17/17 20:33 Dose: 5 mg Potassium Chloride (Kdur) 40 meq PO BIDCC [facility] Last Admin: 09/19/17 08:13 Dose: Not Given Prednisone (Prednisolone) 40 mg PO DAILY [facility] Last Admin: 09/19/17 10:20 Dose: 40 mg Sodium Chloride (Saline Flush) 10 ml IV Q8 [facility] Last Admin: 09/19/17 05:37 Dose: 10 ml Sodium Chloride (Saline Flush) 10 ml IV Q8 [facility] Last Admin: 09/19/17 05:37 Dose: 10 ml Sodium Chloride (Saline Flush) 10 ml IV Q12 [facility] Last Admin: 09/19/17 10:21 Dose: 10 ml Sodium Chloride (Saline Flush) 10 ml IV UD PRN PRN Reason: FLUSH Tamsulosin HCl (Flomax) 0.4 mg PO HS [facility] Last Admin: 09/18/17 21:06 Dose: Not Given Thiamine HCl (Vitamin B1) 100 mg PO QDAY [facility] Last Admin: 09/19/17 10:20 Dose: 100 mg Vancomycin HCl (Vancomycin Per Pharmacy) 1 order IV [facility] Medical - PN: A/P - Time Spent With Patient Total time spent is greater than 50% in coordination of care (as documented) at patient's floor/unit and/or counseling patient: (1) Left lower lobe pneumonia Status: Acute Current Visit: Yes (2) Lactic acidosis Status: Acute Current Visit: Yes (3) Cirrhosis of liver Status: Chronic Current Visit: Yes (4) Hypokalemia Status: Acute Current Visit: No - Narrative A/P Narrative: #1. Infectious disease. Patient presents with apparent left lower lobe pneumonia, lactic acidosis, possible SBP, possible early sepsis. -Peritoneal fluid studies do not appear consistent with SBP at this time. -X-ray shows worsening pneumonia, now bilateral. The patient really has no cough, and has been quite lethargic, so is probably not adequately protecting his airway. Continue Rocephin and clindamycin and vancomycin. Blood urine and sputum cultures and peritoneal fluid cultures are all negative so far. #2. Pulmonary. Patient experienced apparent respiratory depression , likely due to administration of Ativan. He is now oxygenating well with the use of BiPAP. He may be still actively withdrawing from alcohol, but we are trying to use less Ativan, as he clearly has other issues. Ventilation is being supported with BiPAP as we are able. I would like to add chest percussion therapy for his pneumonia, but with his tendency towards bleeding I am a little reluctant. 3. GI and renal. Patient presents with history of cirrhosis, relatively recent. Clinically has severe liver dysfunction. -Hepatitis, with a MADDRY discriminant function of 60. This was reviewed with Dr. Archuleta of GI, and he suggests we treat him with prednisolone 40 mg daily for 30 days, and then do a 16 day taper by 10 mg per day every 4 days. Serum to albumin gradient is suggestive of portal hypertension. -It now appears that the patient has developed hepatorenal syndrome. He has had minimal urine output for about 48 hours. His case was again reviewed at length today with Dr. Becker from nephrology, and then also I met briefly with Dr. Becker in the family after she had discussed all of the options with them. At this time they would like us to continue medical management, without dialysis. They do not want the patient transferred to any hospital other than [facility]. They understand that [facility] does have dialysis available during the week, but not on the weekends. They are not willing to let him be transferred to any other hospital at this time. -He has been very inconsistent with ability to tolerate oral medications, so has periodically missed lactulose and prednisolone, etc. -Dr. Becker continues to administer octreotide and albumin, to see if we can get his kidneys making urine again 4. History of alcohol abuse -Patient should be having less alcohol withdrawal now.. He was given Ativan per the [facility] protocol. He is still very restless, with significant confusion. His mental status issues currently are probably more due to critical illness, mild hepatic encephalopathy, and side effects of medications such as Ativan and morphine. 5. DVT prophylaxis: Patient is auto anticoagulated. 6. Neurologic. Failure to thrive. History of cerebellar degeneration. Patient apparently is no longer ambulatory , although he can stand for transfers normally. His mother reports that he just has trouble walking because his legs are so heavy with edema. She says she [facility], but declined again after he returned home. -PT and OT . It appears patient is struggling at home, and may need placement. #7. Poor nutritional status. Dietary consult. 8. Cardiac. Chest x-ray shows cardiomegaly, but echocardiogram looks fairly normal. No signs of CHF. 9. . Is experiencing urinary retention. Continue Graves catheter for now. Added Flomax. 10. CODE STATUS: Full code. Patient believes his father would act as his POA. Dr. Becker and I reviewed first with the patient's father, and then with the patient's parents and sister today, but the patient is critically ill, and that his risk for complications is quite high. They are quite adamant in their decision that they do not want him moved from this hospital until he can be moved over to [facility], when they have a motor builder assembler available. They understand that he could deteriorate here and require CPR over the weekend, and they are accepting of that. Approximately 40 minutes was spent today, reviewing the patient's test results, interviewing and examining the patient, reviewing the case with nephrology and also with the family, as well as staff. Medical - PN: Qual - VTE Deep Vein Thrombosis/Pulmonary Embolism Present on Admission: No
[2017-09-19] MEDS: LIDOCAINE PATCH TOPICAL SCH (15:10)
[2017-09-19] MEDS: FLUTICASONE PROPIONATE SPRAY.NAS NS SCH ×2 (15:10→21:12)
--- NOTE | 2017-09-19 17:22 | Nephrology Progress Note ---
Subjective Patient information: Note initiated : 09/19/17 at 5:19 pm Service Date, if different from initiated Date: [] Patient: Esteban Almeida 56 y/o M admitted on 09/15/17 for Falls, Swollen Lower Legs/PNA, Cirrhosis of Liver. Chief Complaint: [] Principal diagnosis: PNA, liver cirrhosis, JOAQUÍN Interval history: Patient remains sick with multiple ongoing issues He continues to have AMS though he was aware of place and person this am He has made only 150cc urine in the last 24 hours, he was initiated on octreotide and albumin for HRS, his s.creat is upto 2.0 today he became tachypneic later during the day and he was on Bipap ventilation again Pertinent ROS: limited due to AMS Objective - Vital Signs Vital signs: Vital Signs Temp Pulse Resp BP Pulse Ox 09/19/17 16:19 63 15 94 09/19/17 16:01 64 14 09/19/17 15:55 99.1 F H 16 100 09/19/17 15:37 19 115/82 97 09/19/17 15:01 19 93/59 84 L 09/19/17 14:01 22 109/96 90 09/19/17 13:01 24 H 86/70 91 09/19/17 12:02 98.9 F 18 89/48 90 09/19/17 11:53 17 106/84 87 L 09/19/17 10:01 19 94/50 09/19/17 09:32 69 20 95 09/19/17 09:17 68 19 09/19/17 08:01 99.0 F H 17 96/69 90 09/19/17 07:01 19 117/65 90 09/19/17 06:00 16 104/73 87 L 09/19/17 04:29 95 09/19/17 04:03 93/52 98 09/19/17 03:01 110/44 92 09/19/17 02:01 89/51 92 09/19/17 01:01 95/40 83 L 09/19/17 00:01 97/69 93 09/18/17 23:01 96/78 94 09/18/17 22:01 76/53 93 09/18/17 22:00 92 09/18/17 21:04 72 20 92 09/18/17 21:01 99/60 88 L 09/18/17 21:00 87 L 09/18/17 20:01 97.4 F 17 108/73 93 09/18/17 20:00 95 09/18/17 19:01 109/65 91 09/18/17 18:01 96/82 90 Intake and Output 09/19/17 09/19/17 09/19/17 05:59 13:59 21:59 Intake Total 554 / 554 54 / 54 Output Total 100 / 100 50 / 50 Balance 454 / 454 54 / 54 -50 / -50 Intake: IV 554 / 554 54 / 54 Cleocin 600 mg In Dextrose 5% 54 / 54 54 / 54 in Water 50 ml @ 100 mls/hr IV Q8H [facility] Rx#:[id number] Vancomycin 1,500 mg In Sodium 500 / 500 Chloride 0.9% 500 ml @ 333.3 mls/hr IV Q12H [facility] Rx#: [id number] Output: Urine Catheter Amount 100 / 100 50 / 50 Intake & Output: Intake & Output 09/19/17 09/19/17 09/19/17 05:59 13:59 21:59 Intake Total 554 / 554 54 / 54 Output Total 100 / 100 50 / 50 Balance 454 / 454 54 / 54 -50 / -50 Intake: IV 554 / 554 54 / 54 Cleocin 600 mg In Dextrose 5% 54 / 54 54 / 54 in Water 50 ml @ 100 mls/hr IV Q8H [facility] Rx#:[id number] Vancomycin 1,500 mg In Sodium 500 / 500 Chloride 0.9% 500 ml @ 333.3 mls/hr IV Q12H [facility] Rx#: [id number] Output: Urine Catheter Amount 100 / 100 50 / 50 - General Appearance General appearance: appears started age, chronically ill EENT: mucous membranes moist, scleral icterus Neck: no JVD Respiratory: clear (CTA so limited, poor entry at the bases ) Cardiology: no rub, edema (mainly in the thigh and sacral region, abdominal distension), normal S1, normal S2 Gastrointestinal: no tenderness, no guarding Integumentary: no rash, warm and dry Neurologic: confused Musculoskeletal: no erythema, no cyanosis - Lab 09/19/17 03:51 09/19/17 03:51 Most recent lab results Calcium 7.9 mg/dl (8.6-10.4) L 09/19/17 03:51 Phosphorus 5.5 mg/dL (2.7-4.5) H 09/19/17 03:51 Magnesium 1.7 mg/dL (1.6-2.5) 09/19/17 03:51 Assessment and Plan (1) Cirrhosis of liver Status: Chronic Comment: the hypotension despite volume infusion, the avid sodium retention by kidneys, the rising Cr , and the oliguria in the setting of cirrhosis, alcoholic hepatitis ,and pneumonia would suggest hepatorenal syndrome. Appreciate Dr Becker's consult and agree with octreotide/IV albumin trial. I also agree that pt's prognosis is grim or at least markedly guarded. 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, urine sodium less than 20 he does have some wbc and RBC but I do not think he has another ongoing etiology he does have hyaline casts as well his renal US shows mildly atrophic right kidney Patient remains oliguric despite octreotide and received one dose of albumin overnight I will continue with octreotide and albumin and add lasix with pm dose if no improvement Patient has no emergent need for dialysis but he may need this in next 24-48 hrs I have discussed with the family that the patient has not shown much response to interventions yet and if may end up needing [facility]GER and it would be safe to have him at a tertiary care centre where he could get all possible interventions as needed and indicated as we do not have IR/surgeon who can place a line or dialysis nurse until thursday next week and [facility] does not have dialysis facility over the weekend Patient however did not want to be transferred and so does his family I have discussed that patient may develop pul edema/hyperkalemia (acute indication for dialysis) and may end up having cardio repisratory arrest secondary to this, but at present they just want us to continue with medical management and transfer the pt to [facility] on Thursday if by then he is stable enough to undergo dialysis they were clearly told that he may not make it until then Would recommend to dose meds to egfr less than 10 given oligoanuria even though s.creat is only at 2.0 patient remains full code at this point and he continues to have very high risk of mortality and this has been clearly explained to his family Status: Acute
[2017-09-19] MEDS: TAMSULOSIN 0.4 MG CAPSULE PO SCH (20:12)
[2017-09-19] MEDS ORDERED: FUROSEMIDE 40 MG/4 ML VIAL IV ONE (21:00)
[2017-09-19] MEDS: ALBUMIN HUMAN 25 GM/100 ML BAG IV SCH (21:10)
[2017-09-20] MEDS: LORazepam 2 MG/ML VIAL IV PRN (03:01)
[2017-09-20] MEDS: 0.9 % SODIUM CHLORIDE 10 ML SYRINGE IV SCH ×5 (05:52→14:49)
[2017-09-20] MEDS: CLINDAMYCIN 600 MG in DEXTROSE 5% IN WATER 50 ML IV SCH ×2 (05:52→14:48)
[2017-09-20 06:09] LABS: Basophils # (Auto) 0 K/mcL (0.0-0.3); Basophils % (Auto) 0.1 % (0.0-2.0); Eosinophils # (Auto) 0 K/mcL (0.0-0.7); Eosinophils % (Auto) 0.4 % (0.0-7.0); Lymphocytes # (Auto) 0.7 K/mcL (1.5-4.8); Mean Cell Volume 115.4 fL (80.0-100.0); Mean Corpuscular HGB Conc 33.9 g/dL (31.0-36.0); Mean Corpuscular Hemoglobin 39.1 pg (26.0-34.0); Monocytes # (Auto) 1.3 K/mcL (0.1-0.9); Monocytes % (Auto) 17.5 % (1.0-12.0); Platelet Count 85 K/mcL (140-440); RBC 2.07 M/mcL (4.50-5.90); Red Cell Distribution Width 17.3 % (11.5-14.5)
[2017-09-20 06:23] LABS: ALT/SGPT 20 U/l (0-40); Albumin 3.6 gm/dL (3.2-5.2); Alkaline Phosphatase 67 U/L (39-117); Bilirubin,Direct 3.8 mg/dL (0.0-0.3); Blood Urea Nitrogen 28 mg/dl (6-20); Gamma Glutamyl Transpeptidase 51 U/L (8-61); Uric Acid 4.5 mg/dL (2.5-8.0)
[2017-09-20] MEDS: LACTULOSE 20 GM/30 ML ORAL.SOL PO SCH ×2 (07:04→14:46)
[2017-09-20] MEDS: POTASSIUM CHLORIDE 20 MEQ TABLET PO SCH (07:04)
[2017-09-20] MEDS: FOLIC ACID 1 MG TABLET PO SCH (07:05)
[2017-09-20] MEDS: prednisoLONE 15 MG/5 ML ORAL SOL PO SCH ×2 (07:05→09:55)
[2017-09-20] MEDS: ATENOLOL 50 MG TABLET PO SCH (07:05)
[2017-09-20] MEDS: MULTIVIT,THER IRON,CA,FA & MIN 1 TABLET PO SCH (07:05)
[2017-09-20] MEDS: THIAMINE 100 MG TABLET PO SCH (07:10)
[2017-09-20] MEDS: ALBUMIN HUMAN 25 GM/100 ML BAG IV SCH (08:37)
[2017-09-20] MEDS: OCTREOTIDE ACETATE 1,000 MCG/ML VIAL IV SCH (08:40)
[2017-09-20] MEDS: cefTRIAXone 2 GM VIAL IV SCH (08:46)
[2017-09-20] MEDS: FLUTICASONE PROPIONATE SPRAY.NAS NS SCH (08:47)
[2017-09-20] MEDS: LIDOCAINE PATCH TOPICAL SCH (08:48)
[2017-09-20] MEDS: ALBUTEROL SULFATE 2.5 MG/3 ML NEBULIZER NEB SCH ×2 (08:59→15:22)
[2017-09-20] MEDS ORDERED: OCTREOTIDE ACETATE 100 MCG/ML VIAL IV ONE (09:00)
--- NOTE | 2017-09-20 11:30 | Internal Med Progress Note ---
Medical - PN: Subj Patient information: Note initiated : 09/20/17 at 11:27 am Service Date, if different from initiated Date: [] Patient: Esteban Almeida 56 y/o M admitted on 09/15/17 for Falls, Swollen Lower Legs/PNA, Cirrhosis of Liver. Chief Complaint: [cirrhotic, alcoholic hepatitis; pneumonia. Now with probable hepatorenal syndrome] Interval history: Renal function declining steadily. Family does not want him transferred to [place] based on pt's previously stated wishes to not leave the [place]. pt is currently lethargic ; speaks somewhat but difficult to understand him. Parents at bedside this morning. - Constitutional Vitals: Vital Signs Temp Pulse Resp BP Pulse Ox 97.7 F 63 16 100/71 91 09/20/17 07:40 09/20/17 09:20 09/20/17 09:20 09/20/17 07:40 09/20/17 09:20 Period Temp Pulse Resp BP Sys/López Pulse Ox Last 24 Hr 97.7 F-99.1 F 62-68 12-34 82-116/48-96 84-100 Intake and Output 09/19/17 09/20/17 09/20/17 21:59 05:59 13:59 Intake Total 254 / 254 54 / 54 54 / 54 Output Total 50 / 50 75 / 75 Balance 204 / 204 -21 / -21 54 / 54 Weight 259 lb 12.8 oz Intake & Output: Intake & Output 09/19/17 09/20/17 09/20/17 21:59 05:59 13:59 Intake Total 254 / 254 54 / 54 54 / 54 Output Total 50 / 50 75 / 75 Balance 204 / 204 -21 / -21 54 / 54 Weight 259 lb 12.8 oz Intake: IV 254 / 254 54 / 54 54 / 54 Cleocin 600 mg In Dextrose 5% 54 / 54 54 / 54 54 / 54 in Water 50 ml @ 100 mls/hr IV Q8H [facility] Rx#:[id number] Output: Urine Catheter Amount 50 / 50 75 / 75 General appearance: no acute distress - GI/Abdominal GI/Abdominal exam: Present: soft. Absent: distended - Neurological Exam Additional comments: pt tries to answer questions but somnolent. he indicates that he does not want transfer at this time to a hospital that can provide dialysis today. Medical - PN: Obj Da - Labs CBC & Chem 7: 09/20/17 04:58 09/20/17 04:58 Labs: Abnormal Lab Results 09/20/17 09/20/17 09/19/17 04:58 04:58 07:59 RBC 2.07 L Hgb 8.1 L Hct 23.9 L MCV 115.4 H MCH 39.1 H RDW 17.3 H Plt Count 85 L Gran % Lymph % (Auto) 10.0 L [place] % (Auto) 17.5 H Lymph # (Auto) 0.7 L [place] # (Auto) 1.3 H Chloride 94 L Anion Gap 17.0 H BUN 28 H Creatinine 2.6 H Glucose 142 H Calcium 8.0 L Phosphorus 6.9 H* Total Bilirubin 6.9 H Direct Bilirubin 3.8 H AST 59 H Lactate Dehydrogenase 296 H Albumin Albumin/Globulin Ratio Urine Protein Urine Glucose (UA) Urine Occult Blood Urine Urobilinogen Urine RBC Urine WBC Hyaline Casts Urine Mucus Vancomycin Trough 23.0 H* 09/19/17 09/19/17 09/18/17 03:51 03:51 14:24 RBC 2.08 L Hgb 8.1 L Hct 23.8 L MCV 114.7 H MCH 38.8 H RDW 17.5 H Plt Count 84 L Gran % Lymph % (Auto) 9.3 L [place] % (Auto) 12.7 H Lymph # (Auto) 0.8 L [place] # (Auto) 1.0 H Chloride 95 L Anion Gap 17.0 H BUN Creatinine 2.0 H Glucose 136 H Calcium 7.9 L Phosphorus 5.5 H Total Bilirubin 6.8 H Direct Bilirubin 3.9 H AST 58 H Lactate Dehydrogenase 287 H Albumin 3.0 L Albumin/Globulin Ratio 0.8 L Urine Protein 100 A Urine Glucose (UA) 50 A Urine Occult Blood >=1.0 A Urine Urobilinogen 4.0 A Urine RBC > 182 H Urine WBC 6 H Hyaline Casts 32 H Urine Mucus Many A Vancomycin Trough 09/18/17 09/18/17 03:54 03:54 RBC 2.06 L Hgb 8.1 L Hct 23.4 L MCV 113.8 H MCH 39.4 H RDW 17.2 H Plt Count 70 L Gran % 79.6 H Lymph % (Auto) 8.7 L [place] % (Auto) Lymph # (Auto) 0.5 L [place] # (Auto) Chloride Anion Gap BUN Creatinine Glucose 159 H Calcium 7.5 L Phosphorus 4.8 H Total Bilirubin 7.5 H Direct Bilirubin 4.4 H AST 60 H Lactate Dehydrogenase 272 H Albumin 2.7 L Albumin/Globulin Ratio 0.8 L Urine Protein Urine Glucose (UA) Urine Occult Blood Urine Urobilinogen Urine RBC Urine WBC Hyaline Casts Urine Mucus Vancomycin Trough Meds: Medications Acetaminophen (Tylenol) 650 mg PO Q6HP PRN PRN Reason: PAIN/FEVER > 101 Albuterol Sulfate (Ventolin) 2.5 mg NEB TID [facility] Last Admin: 09/20/17 08:59 Dose: 2.5 mg Atenolol (Tenormin) 50 mg PO QAM [facility] Last Admin: 09/20/17 07:05 Dose: Not Given Ceftriaxone Sodium (Rocephin) 2 gm IV Q24H [facility] Last Admin: 09/20/17 08:46 Dose: 2 gm Docusate Sodium (Colace) 100 mg PO BID PRN PRN Reason: Constipation Fluticasone Propionate (Flonase) 1 spray NS BID [facility] Last Admin: 09/20/17 08:47 Dose: 1 spray Folic Acid (Folic Acid) 1 mg PO DAILY [facility] Last Admin: 09/20/17 07:05 Dose: Not Given Heparin Sodium (Porcine) (Heparin Flush) 2 ml IV Q12 [facility] Last Admin: 09/20/17 08:37 Dose: 2 ml Clindamycin Phosphate 600 mg/ (Dextrose) 54 mls @ 100 mls/hr IV Q8H [facility] Last Infusion: 09/20/17 07:10 Dose: Infused Albumin Human (Buminate) 25 gm in 100 mls @ 200 mls/hr IV BID [facility] Last Admin: 09/20/17 08:37 Dose: 200 mls/hr Iron Carb/Multivit/[place]/Folic Acid (Multivitamin W/Minerals) 1 tab PO DAILY [facility] Last Admin: 09/20/17 07:05 Dose: Not Given Lactulose (Cephulac) 20 gm PO QID [facility] Last Admin: 09/20/17 07:04 Dose: Not Given Lidocaine (Lidoderm) 1 patch TOPICAL DAILY@1000 [facility] Last Admin: 09/20/17 08:48 Dose: 1 patch Lorazepam (Ativan) 0 mg IV Q4HP PRN; Protocol PRN Reason: Alcohol Withdrawal Last Admin: 09/20/17 03:01 Dose: 2 mg Morphine Sulfate (Morphine) 2 mg IV Q6HP PRN PRN Reason: PAIN LEVEL > 6 Last Admin: 09/20/17 07:49 Dose: 2 mg Naloxone HCl (Narcan) 0.1 mg IV Q2MIN PRN PRN Reason: Opiate Reversal Octreotide Acetate (Sandostatin) 100 mcg IV TID [facility] Ondansetron HCl (Zofran) 4 mg IV Q6HP PRN PRN Reason: Nausea And Vomiting Oxycodone HCl (Roxicodone) 5 mg PO Q4HP PRN PRN Reason: Pain Last Admin: 09/17/17 20:33 Dose: 5 mg Potassium Chloride (Kdur) 40 meq PO BIDCC [facility] Last Admin: 09/20/17 07:04 Dose: Not Given Prednisone (Prednisolone) 40 mg PO DAILY [facility] Last Admin: 09/20/17 09:55 Dose: 40 mg Sodium Chloride (Saline Flush) 10 ml IV Q8 [facility] Last Admin: 09/20/17 05:52 Dose: 10 ml Sodium Chloride (Saline Flush) 10 ml IV Q8 [facility] Last Admin: 09/20/17 05:53 Dose: 10 ml Sodium Chloride (Saline Flush) 10 ml IV Q12 [facility] Last Admin: 09/20/17 08:40 Dose: 10 ml Sodium Chloride (Saline Flush) 10 ml IV UD PRN PRN Reason: FLUSH Tamsulosin HCl (Flomax) 0.4 mg PO HS [facility] Last Admin: 09/19/17 20:12 Dose: Not Given Thiamine HCl (Vitamin B1) 100 mg PO QDAY [facility] Last Admin: 09/20/17 07:10 Dose: Not Given Vancomycin HCl (Vancomycin Per Pharmacy) 1 order IV UD [facility] Medical - PN: A/P - Time Spent With Patient Total time spent is greater than 50% in coordination of care (as documented) at patient's floor/unit and/or counseling patient: (1) Cirrhosis of liver Status: Chronic Assessment and plan: Even though the ammonia is normalized and the total bilirubin (from EtOH hepatitis) is reduced, I believe pt's renal failure is on basis of hepatorenal syndrome. Discussed with hospitalist and community outreach coordinator today. [facility] apparently cannot provide dialysis on weekends. Current Visit: Yes (2) Acute renal failure (ARF) Status: Acute Current Visit: Yes Medical - PN: Qual - VTE Deep Vein Thrombosis/Pulmonary Embolism Present on Admission: No
[2017-09-20] MEDS ORDERED: FUROSEMIDE 100 MG/10 ML VIAL IV ONE (11:45)
--- NOTE | 2017-09-20 11:54 | Nephrology Progress Note ---
Subjective Patient information: Note initiated : 09/20/17 at 11:52 am Service Date, if different from initiated Date: [] Patient: Esteban Almeida 56 y/o M admitted on 09/15/17 for Falls, Swollen Lower Legs/PNA, Cirrhosis of Liver. Chief Complaint: [] Principal diagnosis: PNA, liver cirrhosis, JOAQUÍN Interval history: seen this am Patient continues to be oligoanuric with steadily declining renal function no hyperkalemia or acidosis but he has been 6-7L net positive on fluid balance with 8-9 lbs of weight gain he c/o pain on and off he does have episodes of tachypnea and needs Bipap ventilation intermittently no other issues liver function seems to have stabilised Pertinent ROS: limited as patient is difficult to understand Objective - Vital Signs Vital signs: Vital Signs Temp Pulse Pulse Resp BP Pulse Ox 09/20/17 09:20 63 16 91 09/20/17 08:59 66 17 09/20/17 07:40 97.7 F 34 H 100/71 85 L 09/20/17 07:11 64 17 90 09/20/17 06:01 100/71 90 09/20/17 04:11 14 84/56 92 09/20/17 04:05 17 09/20/17 02:03 15 95/73 91 09/20/17 01:04 13 114/70 92 09/20/17 00:01 16 116/69 89 L 09/19/17 23:09 67 14 94 09/19/17 23:01 15 85/61 93 09/19/17 22:01 13 101/57 94 09/19/17 22:00 94 09/19/17 21:17 68 12 09/19/17 21:11 67 12 95 09/19/17 21:01 15 98/72 94 09/19/17 20:00 16 115/59 95 09/19/17 19:15 62 12 95 09/19/17 19:00 19 82/50 96 09/19/17 18:00 15 88/53 93 09/19/17 17:03 18 99/52 95 09/19/17 16:19 63 15 94 09/19/17 16:01 64 14 09/19/17 15:55 99.1 F H 16 100 09/19/17 15:37 19 115/82 97 09/19/17 15:01 19 93/59 84 L 09/19/17 14:01 22 109/96 90 09/19/17 13:01 24 H 86/70 91 09/19/17 12:02 98.9 F 18 89/48 90 09/19/17 11:53 17 106/84 87 L Intake and Output 09/19/17 09/20/17 09/20/17 21:59 05:59 13:59 Intake Total 254 / 254 54 / 54 54 / 54 Output Total 50 / 50 75 / 75 Balance / - 54 / 54 Intake: IV 254 / 254 54 / 54 54 / 54 Cleocin 600 mg In Dextrose 5% 54 / 54 54 / 54 54 / 54 in Water 50 ml @ 100 mls/hr IV Q8H [facility] Rx#:[id number] Output: Urine Catheter Amount 50 / 50 75 / 75 Other: Weight 259 lb 12.8 oz Intake & Output: Intake & Output 09/19/17 09/20/17 09/20/17 21:59 05:59 13:59 Intake Total 254 / 254 54 / 54 54 / 54 Output Total 50 / 50 75 / 75 Balance / 54 / 54 Weight 259 lb 12.8 oz Intake: IV 254 / 254 54 / 54 54 / 54 Cleocin 600 mg In Dextrose 5% 54 / 54 54 / 54 54 / 54 in Water 50 ml @ 100 mls/hr IV Q8H [facility] Rx#:[id number] Output: Urine Catheter Amount 50 / 50 75 / 75 - General Appearance General appearance: appears started age, chronically ill EENT: mucous membranes moist Neck: no JVD Respiratory: rales Cardiology: no rub, edema, normal S1, normal S2 Gastrointestinal: no tenderness (distended ), no guarding Integumentary: warm and dry Neurologic: alert and oriented x3 (following simple verbal commands ) Musculoskeletal: no erythema, no cyanosis - Lab 09/20/17 04:58 09/20/17 04:58 Most recent lab results Calcium 8.0 mg/dl (8.6-10.4) L 09/20/17 04:58 Phosphorus 6.9 mg/dL (2.7-4.5) H* 09/20/17 04:58 Magnesium 2.0 mg/dL (1.6-2.5) 09/20/17 04:58 Assessment and Plan (1) Lower extremity edema Status: Acute (2) Cirrhosis of liver Status: Chronic (3) Left lower lobe pneumonia Status: Acute (4) Acute renal failure (ARF) 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, urine sodium less than 20 he does have some wbc and RBC but I do not think he has another ongoing etiology he does have hyaline casts as well and this may be related to HRS as well, he has received enough IVF his renal US shows mildly atrophic right kidney Patient remains oligoanuric, now for the last 3 days with no response to octreotide and albumin infusion I will ct with the same today and give him another dose of lasix to see if we can get any urinary output patient's serum creatinine is rising slowly, he may be having poor muscle mass and his creatinine may not accurately reflect his renal function. he has been oligoanuric for the last 3 days and his phos level si rising,. his K is already at 4.9 today and he has some IE on xray, 8-10 lb of fluid weight gain during this hospital stay. Given all this it may be safe to get him started on dialysis , however again no dialysis available over the weekend at [facility] and we do not have an oncall air drill operator available for the next 4 days, patient and family does not want ben transferred to [place] Given this we will touch base with [facility] to get the patient transferred later today or tomorrow early to get him initiated on dialysis the family and the patient understand and have been told clearly that he may decompensate and not make until then Will follow along Please dose meds to egfr less than 10 Thank you for giving me an opportunity to participate in Mr Almeida's medical care , appreciate it Status: Acute
--- NOTE | 2017-09-20 13:39 | XRay Report ---
HISTORY: Reason for Exam:pneumonia follow up FINDINGS: Large consolidating infiltrate is present in the left lower lobe and there is milder infiltrate centrally in the right lung involving both upper and lower lobes. There may be a superimposed left-sided pleural effusion. Heart size is borderline enlarged but magnified by portable technique. The pulmonary vessels are obscured by the infiltrates. Right-sided PICC line is well-positioned. Comparison with the prior exam from 09/18/17 shows the right-sided infiltrate is becoming worse and there has been slight improvement around the left hilum. The left lung base remains densely consolidated. IMPRESSION: Bilateral pneumonia with the greatest involvement in left lower lobe Interpreted and Authenticated by: Esteban Soto 09/20/17
--- NOTE | 2017-09-20 14:43 | Discharge Summary ---
Medical - DS: Prov Patient information: Note initiated : 09/20/17 at 2:33 pm Service Date, if different from initiated Date: [] Patient: Esteban Almeida 56 y/o M admitted on 09/15/17 for Falls, Swollen Lower Legs/PNA, Cirrhosis of Liver. Chief Complaint: [] Date of admission: 09/15/17 21:10 Discharge date: 09/20/17 Primary care physician: Erwin Moore Admitting clinician: Monie Goodwin Consults: 09/15/17 20:35 Consult to Physician [CONS] Stat Comment: Consulting Provider: Monie Goodwin Reason For Exam: Physician to Consult 09/16/17 18:48 Consult to Physician [CONS] Routine Comment: Consulting Provider: Fabrice Martínez, GI Reason For Exam: Physician to Consult 09/18/17 14:26 Consult to Physician [CONS] Routine Comment: Consulting Provider: Lillie Becker, nephrology Reason For Exam: Physician to Consult Attending physician on discharge: Monie Goodwin Medical - DS: Meds - Discharge Medications Prescriptions: Albumin Human [Albuked-25] 100 ml IV BID #1 vial Vancomycin Per Pharmacy 1 order IV ONCE #1 miscell Active and Home Medications: Discharge medications: Albumin 25 g IV twice daily--per Dr. Becker, this can be changed to once a day* Octreotide 100 mcg IV 3 times daily Prednisolone 40 mg p.o. daily, for 30 days total, per GI Albuterol nebs 3 times daily as needed BiPAP as needed hypoxia due to lethargy, hepatic encephalopathy Oxygen as needed Ceftriaxone 2 g IV every 24 hours Clindamycin 600 mg IV every 8 hours Vancomycin per pharmacy IV daily Colace 100 mg twice daily Flonase 1 spray each nostril twice daily for nasal congestion Folate 1 mg daily Multivitamin with minerals 1 daily Lactulose 20 g p.o. 4 times daily as tolerated Lidoderm patch topically to his low back every morning, remove 12 hours later Ativan 2 mg IV every 4 hours as needed agitation or other signs of alcohol withdrawal Morphine 2 mg IV every 6 hours as needed uncontrolled back pain and restlessness Narcan 0.1 mg IV every 2 minutes as needed Zofran 4 mg IV every 6 hours as needed Oxycodone 5 mg p.o. every 4 hours as needed Saline flushes for his PICC line Flomax 0.4 mg nightly for bladder obstruction. Thiamine 100 mg p.o. daily Previous home Medications Allopurinol [Zylopriim] 300 mg PO DAILY 09/15/17 [History Confirmed 09/15/17 Last Taken Unknown] Atenolol [Tenormin] 50 mg PO BID 09/15/17 [History Confirmed 09/15/17 Last Taken Unknown] Furosemide [Lasix] 40 mg PO DAILY 09/15/17 [History Confirmed 09/15/17 Last Taken Unknown] Potassium Chloride [Kdur] 4 tab PO DAILY 09/15/17 [History Confirmed 09/15/17 Last Taken Unknown] amLODIPine [Norvasc] 5 mg PO DAILY 09/15/17 [History Confirmed 09/15/17 Last Taken Unknown] oxyCODONE HCL [Oxycodone HCl] 1 tablet PO Q6H PRN 09/15/17 [History Confirmed Last Taken Unknown] Medical - DS: Hosp Hospital course: Mr. Almeida is a 56 year old M September 15, 2017: History of present illness: Mr. Almeida is a 56 year old man who was recently diagnosed with liver cirrhosis, is brought in by his family with complaint of increased falls, lower extremity edema, jaundice, shortness of breath. Unfortunately, the family had already gone home by the time the patient arrived on the floor. Patient appears to be an unreliable historian. He reports that his legs have been swelling for the last 3 weeks, and that he fell down today and could not get up because his legs are so heavy. He really cannot recall any other symptoms. He denies fever chills, headaches or dizziness, new eye or ear symptoms, sore throat or cough, chest pain or palpitations, shortness of breath or wheezing, abdominal pain, nausea or vomiting, diarrhea. He does report mild constipation. He does report some difficulty urinating. Records obtained from [facility] show that he was admitted there in May 2017 with jaundice secondary to alcoholic hepatitis, liver cirrhosis secondary to alcohol, cerebellar ataxia, hypokalemia, L3 compression fracture, chronic anemia and thrombocytopenia, alcohol abuse. I spoke with Dr. Archuleta this evening, as he had seen the patient at [facility]. He had hoped the patient had quit drinking alcohol, but apparently the patient did not once he got out of rehab. ER evaluation shows weighted ammonia level, elevated lactic acid level, hypokalemia, markedly elevated bilirubin of 9.6, elevated pro time, and chest x- ray suggests left lower lobe pneumonia with possible effusion. September 16: -Today, the patient continues to deny that he is having problems. He is wondering when he can go home. Last evening, he was unable to empty his bladder , and had a greater than 700 mL postvoid residual, so Graves catheter was placed. He admits he has been having trouble emptying his bladder at home. -He was seen by physical therapy today. He is still too weak to really assist much with transfers, so they are working on that. -He denies significant pain, fever or chills, chest pain or shortness of breath or cough, abdominal pain, nausea or vomiting or diarrhea. His history appears quite unreliable. -Radiology was able to remove approximately 3 L of fluid via paracentesis today. -His father was in the room when I stop by this evening, and I explained that he was having further decompensation of his liver function, and due to ongoing alcohol use. The father, who lives with the patient, says he did not realize the patient was still drinking. Nursing staff tells me that the patient's parents feel that because of worsening weakness they are concerned that they will not be able to handle him at home any longer. September 17: The patient had a very rough evening. In the evening he started to have increased agitation. He was given Ativan per the CIWA protocol. He subsequently had continued agitation, and then started to have trouble maintaining his O2 saturations. He was initially treated for possible volume overload with IV Lasix, but did not seem to respond. His breathing became more labored, and he eventually required oral airway and administration of BiPAP. ABG showed hypercarbia and hypoxia, consistent with hypoventilation. Chest x- ray showed continued left lower lobe infiltrate and possible left pleural effusion. He has had borderline hypotension, but is maintaining mean arterial pressures above 65. Bilirubin had dropped after initiating steroids, but bumped up again today. His nurse notes this morning that he has been too somnolent to take oral meds. The patient remains quite somnolent and confused. He is unable to give any history. His family seems to be surprised by his liver failure, even though this is an ongoing issue. His mother is requesting a director business come in to administer last rights. She understands that he is not necessarily preterminal , but she also understands that he will likely from liver cirrhosis related complications. September 18: -The patient again had a very difficult night. He again had agitation last night which did not respond very well to Ativan. We then gave him 1 dose of morphine, which seemed to help him relax. He does require BiPAP to maintain his oxygen saturations most of the time, although he has come off the BiPAP this morning. -He was mostly obtunded yesterday, but is more awake this morning he says he is feeling okay. He continues to deny fever or chills, cough or shortness of breath. His chest x-ray shows worsening pneumonia. -I reviewed his case in detail with Dr. Archuleta of this morning. The patient's blood pressures have been running low, and urine output is minimal. He has not responded to either fluid challenge or diuretics. We also have not been able to get any nutrition into him because of his obtunded state. Dr. Archuleta is very concerned that the patient is developing hepatorenal syndrome, and that his risk of mortality is increasingly high. I reviewed his case briefly with Dr. Becker from nephrology. She is now consulting, and will consider whether to try albumin and Lasix to improve urine output, or vasopressors. If that ends up being unsuccessful, then she would recommend that we transfer the patient to a larger center where he would have access to a full range of specialist. -I spent quite a while last evening reviewing the patient's status and test results with his sister, who is also a physician. -Otherwise, this morning, the patient continues fairly confused. He continues to deny any pain, chest pain or palpitations, shortness of breath, abdominal pain, nausea or vomiting or diarrhea, but his history is quite unreliable. The nurses can occasionally get a few tablespoons of something and then by mouth, but he is in general not alert enough to take in very much. September 19: -Patient continues to have encephalopathy and mild agitation in the evenings. He did receive both Ativan and morphine last night. The morphine seemed to settle him down more, so we are thinking perhaps he was having pain. His family notes he does have known chronic back pain. He has not really been able to express this to us verbally, at least not consistently -The patient continues to have extremely low urine output. He was treated by Dr. Becker last night with albumin and octreotide, without much in the way of results. He has now developed hepatorenal syndrome. He is at very high risk for further complications, and further decline in renal function. This may require acute dialysis. The patient has been told this, but it is not very clear what he understands. His parents and sister are well aware of his condition, but do not want him transferred out of the [place]. They refused transfer to a larger tertiary care center in [place]. -He continues to have very weak cough and altered mental status, so has not really been able to come cooperate well with pulmonary toilet. He continues on antibiotics for pneumonia, which does not seem to be clearing. He became more hypoxic again this evening, so is now back on BiPAP. -He remains quite obtunded today, but will arouse a little bit to loud voice and touch. He intermittently admits to pain, but generally not. He seems to deny fever or chills, cough, shortness of breath, chest pain, GI or symptoms. September 20: Hospital course: -This patient was admitted with increasing weakness and falls. He had recently been admitted to [facility] in [place] with a diagnosis of alcoholic hepatitis and liver cirrhosis, and had undergone a 30 day course of prednisolone, which seemed to help quite a bit. He did well in rehab, but as soon as he got home began to drink again. The evening of admission he had fallen and his father just could not get him back up. ER evaluation showed lactic acidosis, markedly elevated bilirubin and elevated pro time, and chest x- ray suggestive of pneumonia. -He was admitted and started on ceftriaxone to cover both SBP and pneumonia. He then had clindamycin added to cover for possible aspiration pneumonia. When his pneumonia did not improve, he had vancomycin added as well. He has been very lethargic, with minimal and weak cough. He has not been able to participate in incentive spirometry. We have avoided chest percussion therapy due to his bleeding tendency. Chest x-ray continues to show large infiltrate in the left lower lobe and mild infiltrate in the mid right lung, involving both upper and lower lobes. Small left-sided pleural effusion. -O2 saturations vary quite a bit. When he is relatively awake, he reads fine with oxygen by nasal cannula. When he is more lethargic, he tends to become restless and agitated, and his O2 saturations will drop below 90%, and then he has been supported with BiPAP, which he tolerates relatively well. -He was on the CIWA protocol for alcohol withdrawal the first few days. He is now given only intermittent Ativan as needed, as we believe that worsens his mental status. -He is known to have chronic back pain, and his family suggested he get pain medications when he is so restless. Low-dose IV morphine seems to help him relax especially at night. -He continues on oral prednisolone for his alcoholic hepatitis. He has been followed by Dr. Archuleta of . LFTs are slowly improving. -2 days ago his urine output declined significantly, and nephrology consult was requested. He has not responded to either fluid challenges or Lasix. Dr. Becker is now giving him IV octreotide and albumin, but with minimal response. We now believe he has hepatorenal syndrome, with acute renal failure. He is in need of dialysis. His family has refused to let us transfer him to any hospital out of the [place], because they insist that is not with the patient once. Dialysis is not available either here or at [facility] today, but would be available at [facility] tomorrow. He will therefore be transferred over there this evening. Dr. Fabrice Bagley has been contacted and asked to place a temporary dialysis catheter. Dr. Becker will see him tomorrow morning to write dialysis orders. -He has very poor IV access, so PICC line was placed. -He is probably in need of a liver transplant, but would not be put on the waiting list until he stopped drinking for at least 6 months. He has continued to drink at home, at least a sixpack of beer a day, probably plus hard alcohol as well. -Shortly after admission he was unable to urinate, and had high postvoid residuals, so Graves catheter was placed. On exam, he is mostly obtunded. He is difficult to arouse, and does not seem to fully comprehend questions or be able to express answers adequately. Neck shows no obvious JVD or lymphadenopathy. Cardiac exam shows regular rate and rhythm. Lungs: He has fairly dense crackles at the left base, and scattered crackles throughout all lung chairez. And generally decreased breath sounds. He is not really able to fully cooperate with deep breathing. Abdomen is soft, without obvious tenderness. Extremities: Continue to show severe pitting edema up to the abdomen. Neurologic exam: Patient is lethargic and can only intermittently follow commands. At times, he is very restless and tries to pull on lines and rolls around in bed quite a bit. Ativan helps minimally. Morphine seems to help a bit more, but Dr. Becker is concerned about his ability to clear morphine given his acute renal failure. Assessment and plan: #1. Infectious disease. Patient presents with apparent left lower lobe pneumonia, lactic acidosis, possible SBP, possible early sepsis. -Peritoneal fluid studies do not appear consistent with SBP at this time. -X-ray shows worsening pneumonia, now bilateral. The patient really has no cough, and has been quite lethargic, so is probably not adequately protecting his airway. Continue Rocephin and clindamycin and vancomycin. Blood urine and sputum cultures and peritoneal fluid cultures are all negative so far. #2. Pulmonary. Patient experienced apparent respiratory depression , likely due to administration of Ativan. He is now oxygenating well with the use of BiPAP. He may be still actively withdrawing from alcohol, but we are trying to use less Ativan, as he clearly has other issues. Ventilation is being supported with BiPAP as we are able. I would like to add chest percussion therapy for his pneumonia, but with his tendency towards bleeding I am a little reluctant. -He is able to take the BiPAP off periodically, and just use oxygen by nasal cannula, when he is more alert. Staff has not had much luck getting him to cooperate with incentive spirometry. -Continue albuterol nebulizers IV antibiotics, pulmonary toilet. 3. GI and renal. Patient presents with history of cirrhosis, relatively recent. Clinically has severe liver dysfunction. -Hepatitis, with a MADDRY discriminant function of 60. This was reviewed with Dr. Archuleta of GI, and he suggests we treat him with prednisolone 40 mg daily for 30 days, and then do a 16 day taper by 10 mg per day every 4 days. Serum to albumin gradient is suggestive of portal hypertension. -It now appears that the patient has developed hepatorenal syndrome. He has had minimal urine output for about 48 hours. His case was reviewed at length with Dr. Becker from nephrology. the patient's family does not want the patient transferred to any hospital other than [facility]. They understand that [facility] does have dialysis available during the week, but not on the weekends. They are not willing to let him be transferred to any other hospital at this time. -I contacted the hospitalist at [facility] today, and the hospitalist graciously accepted this patient in transfer. I also contacted Dr. Fabrice Bagley, and he will place a temporary dialysis catheter, so that Dr. Becker can see the patient tomorrow morning and write dialysis orders. -Dr. Archuleta of also agrees to follow the patient there. -He has been very inconsistent with ability to tolerate oral medications, so has periodically missed lactulose and prednisolone, etc. -Dr. Becker continues to administer octreotide and albumin. 4. History of alcohol abuse -Patient should be having less alcohol withdrawal now.. He was given Ativan per the CIWA protocol. He is still very restless, with significant confusion. His mental status issues currently are probably more due to critical illness, mild hepatic encephalopathy, and side effects of medications such as Ativan and morphine. 5. DVT prophylaxis: Patient is auto anticoagulated. He does not tolerate support stockings. SCDs could be tried. 6. Neurologic. Failure to thrive. History of cerebellar degeneration. Patient apparently is no longer ambulatory , although he can stand for transfers normally. His mother reports that he just has trouble walking because his legs are so heavy with edema. She says she did make [facility], but declined again after he returned home. -PT and OT . It appears patient is struggling at home, and may need placement. #7. Poor nutritional status. Dietary consult was requested, but the patient's mental status has not really allowed for this.. 8. Cardiac. Chest x-ray shows cardiomegaly, but echocardiogram looks fairly normal. No signs of CHF. 9. . Is experiencing urinary retention. Continue Graves catheter for now. Added Flomax. 10. CODE STATUS: Full code. Patient believes his father would act as his POA. Yesterday, Dr. Becker and I reviewed first with the patient's father, and then with the patient's parents and sister , but the patient is critically ill, and that his risk for complications is quite high. They are quite adamant in their decision that they do not want him moved from this hospital until he can be moved over to [facility], when they have a forensics analyst available. They understand that he could deteriorate here and require CPR over the weekend, and they are accepting of that. Discharge diagnosis: Renal failure. Hepatorenal syndrome. Liver failure. Pneumonia. - Time Spent with Patient Total time spent providing and/or coordinating discharge services: Greater than 30 minutes Medical - DS: Exam - Constitutional Vitals: Vital Signs Temp Pulse Pulse Resp BP Pulse Ox 09/20/17 12:00 97.8 F 15 113/79 89 L 09/20/17 10:00 12 109/77 92 09/20/17 09:20 63 16 91 09/20/17 08:59 66 17 09/20/17 08:01 18 107/50 88 L 09/20/17 07:40 97.7 F 34 H 100/71 85 L 09/20/17 07:11 64 17 90 09/20/17 06:01 100/71 90 09/20/17 04:11 14 84/56 92 09/20/17 04:05 17 09/20/17 02:03 15 95/73 91 09/20/17 01:04 13 114/70 92 09/20/17 00:01 16 116/69 89 L 09/19/17 23:09 67 14 94 09/19/17 23:01 15 85/61 93 09/19/17 22:01 13 101/57 94 09/19/17 22:00 94 09/19/17 21:17 68 12 09/19/17 21:11 67 12 95 09/19/17 21:01 15 98/72 94 09/19/17 20:00 16 115/59 95 09/19/17 19:15 62 12 95 09/19/17 19:00 19 82/50 96 09/19/17 18:00 15 88/53 93 09/19/17 17:03 18 99/52 95 09/19/17 16:19 63 15 94 09/19/17 16:01 64 14 09/19/17 15:55 99.1 F H 16 100 09/19/17 15:37 19 115/82 97 09/19/17 15:01 19 93/59 84 L Intake and Output 09/20/17 09/20/17 09/20/17 05:59 13:59 21:59 Intake Total 54 / 54 54 / 54 Output Total 75 / 75 Balance - / - 54 / 54 Intake: IV 54 / 54 54 / 54 Cleocin 600 mg In Dextrose 5% 54 / 54 54 / 54 in Water 50 ml @ 100 mls/hr IV Q8H [facility] Rx#:[id number] Output: Urine Catheter Amount 75 / 75 Medical - DS: Data Labs on day of discharge: Labs from last 24 hours 09/20/17 09/20/17 09/20/17 04:58 04:58 04:58 WBC 7.5 RBC 2.07 L Hgb 8.1 L Hct 23.9 L MCV 115.4 H MCH 39.1 H MCHC 33.9 RDW 17.3 H Plt Count 85 L MPV 8.9 Gran % 72.0 Lymph % (Auto) 10.0 L Pima % (Auto) 17.5 H Eos % (Auto) 0.4 Baso % (Auto) 0.1 Gran # 5.4 Lymph # (Auto) 0.7 L Pima # (Auto) 1.3 H Eos # (Auto) 0 Baso # (Auto) 0 Sodium 134 Potassium 4.9 Chloride 94 L Carbon Dioxide 23 Anion Gap 17.0 H BUN 28 H Creatinine 2.6 H GFR Calculation 26 Glucose 142 H Uric Acid 4.5 Calcium 8.0 L Phosphorus 6.9 H* Magnesium 2.0 Total Bilirubin 6.9 H Direct Bilirubin 3.8 H GGT 51 AST 59 H ALT 20 Alkaline Phosphatase 67 Ammonia 52 Lactate Dehydrogenase 296 H Total Protein 7.2 Albumin 3.6 Globulin 3.6 Albumin/Globulin Ratio 1.0 Triglycerides 56 Random Vancomycin Vancomycin Dose Vanco Last Dose Time 09/20/17 04:58 WBC RBC Hgb Hct MCV MCH MCHC RDW Plt Count MPV Gran % Lymph % (Auto) Pima % (Auto) Eos % (Auto) Baso % (Auto) Gran # Lymph # (Auto) Pima # (Auto) Eos # (Auto) Baso # (Auto) Sodium Potassium Chloride Carbon Dioxide Anion Gap BUN Creatinine GFR Calculation Glucose Uric Acid Calcium Phosphorus Magnesium Total Bilirubin Direct Bilirubin GGT AST ALT Alkaline Phosphatase Ammonia Lactate Dehydrogenase Total Protein Albumin Globulin Albumin/Globulin Ratio Triglycerides Random Vancomycin 17.0 Vancomycin Dose Not Reportable Vanco Last Dose Time Not Reportable Preliminary micro results at discharge 09/15/17 19:35 Blood Culture - Preliminary Blood 09/15/17 19:29 Blood Culture - Preliminary Blood September 19: CBC: White blood cell count 8000, hemoglobin 8, hematocrit 23.8, platelets 84, 000. Chemistry panel: Sodium 135, potassium 4.6, chloride 95, CO2 23, anion gap 17, BUN 17, creatinine 2.0, glucose 136 Calcium 7.9, phosphorus 5.5, total bilirubin 6.8, direct bilirubin 3.9, AST 58, LDH 287 September 18: Chest x-ray: There is a large consolidating infiltrate in the left lower lobe and small infiltrate behind the right heart border (worsening since yesterday). The infiltrates have remained stable since 8:01 AM on the same date. IMPRESSION : No complication following PICC line placement. Urine culture: Shows no growth so far. September 17: Echocardiogram: Normal left ventricle. Ejection fraction 65-70% mildly dilated left and right atria. Mild to moderate posterior mitral annular calcification. ABG on BiPAP, 10/, FiO2 60%: PH 7.38, PCO2 59, PO2 107, bicarb 34, O2 saturation 98% September 16: (Around midnight): ABG on 5 L oxygen mask: PH 7.38, PCO2 56, PO2 47, bicarb 33, 82% saturated Peritoneal fluid: PH 7.63. CBC shows 2% neutrophils, 44 lymphocytes, 46 mesothelial cells. Protein is 1.7. Albumin 0.7. Culture negative. September 15: Pro time is 23 with INR of 2.0 CBC: White blood cell count is 7900, hemoglobin 10.8, hematocrit 31, platelets 129,000. Absolute monocyte count is 1400. Chemistry panel: Show sodium 136, potassium 2.6, chloride 90, CO2 21, anion gap 25, BUN 8, creatinine 1.0 Calcium 8.0, total bilirubin 9.6, AST 67, ALT 21, alk phos 115, albumin 3.0, globulin 5.1 Ammonia 232 Lactic acid is elevated at 9.8 Urinalysis: Urine bilirubin is 4.0, ictotest is positive, urobilinogen is 4.0, few urine bacteria. 127 hyaline casts. Alcohol level is elevated at 0.046 Chest x-ray: Moderate left lower lobe consolidation. Possible left-sided pleural effusion. Mild compression fractures of the endplate of T12, old. Mild cardiomegaly. Head CT done at [facility] in May 2017 showed no acute process. Abdominal and pelvic CT showed cirrhosis of the liver with portal venous hypertension, pancreatitis, distended gallbladder, L1 and L3 superior endplate compression changes and L3 compression fracture, evidence of right renal atrophy Ultrasound showed distended gallbladder with sludge MRCP showed significantly distended gallbladder with some sludge of the neck but no biliary duct dilation. Labs on admission in May showed platelet count of 88,000, sodium 132, potassium 2.4, total bilirubin of 10 AST 91, alcohol blood level of less than 0.01. Medical - DS: A/P - Patient/Caregiver Discharge Instructions Activity: as per physical therapy Diet: Renal Prescriptions: Albumin Human [Albuked-25] 100 ml IV BID #1 vial Vancomycin Per Pharmacy 1 order IV ONCE #1 miscell - Problem Maintenance (1) Left lower lobe pneumonia Status: Acute (2) Lactic acidosis Status: Acute (3) Cirrhosis of liver Status: Chronic (4) Hypokalemia Status: Acute - Follow up Plan Follow up with: Erwin Moore MD [Primary Care Provider] - Disposition: [facility] Prognosis: Critical Rehab Potential: Critical Overall status at discharge: patient is not back to baseline Medical - DS: Qual - VTE Deep Vein Thrombosis/Pulmonary Embolism Present on Admission: No
[2017-09-20] MEDS ORDERED: OCTREOTIDE ACETATE 100 MCG/ML VIAL IV SCH (15:00)
== END 2017-09-20 15:50 | disposition short-term general hospital (02) | DRG 441 ==
LOC: ED 18:14 → ICU 21:10
PROVIDERS: ADMIT Internal Medicine; ATTEND Internal Medicine